=== PATIENT | female | born 1945 | race Caucasian/White ===

== ENCOUNTER 2021-08-27 18:55 | Observation (INO) ==
--- NOTE | 2021-08-27 19:06 | Emergency Department Note ---
Impression & Plan Syncope, Hyperglycemia ED Provider Note NAME: CHILO ROSENBERG AGE: 76 SEX: F : 1945 ARRIVES VIA: Ambulance INFORMANT: Patient, ED PROVIDER(S): Ernst Mclean MD Chief Complaint: Syncope HPI: Patient does present from home due to concern for syncope. The patient does not remember the event. The patient states that she was eating dinner when she got very lightheaded and warm and flushed and then she woke up with her on the phone with 911. Patient states that she had some mild upper abdominal discomfort but does not describe it as a pain. Patient states that she did not receive any medications in route but did receive oxygen which she said slightly improved her symptoms. Patient denies any current chest pain or shortness of breath. The patient does have a remote history of a 40% blockage for which she is on medication but never received any cardiac stenting. Patient states she is compliant with her medications. Patient states that she does not receive vaccinations including Shingrix, pneumococcal or COVID-19. Patient denies upper respiratory symptoms. Patient denies any lower extremity edema, history DVT or PE. No recent surgeries or procedures or recent travel. No know n sick contacts. Patient states that this has not happened before. No reported seizure-like activity. BSG was not obtained by EMS prior to arrival. The patient denies any tongue biting or incontinence. Patient denies any head or neck pain. ROS: See HPI for pertinent positives and negatives. A total of 10 systems were reviewed and otherwise negative. Past medical history: See below Surgical history: See below Social history: See below Physical Exam: GENERAL: NAD, wearing glasses, wearing a mask, non-toxic. Nasal cannula in place but not hooked up to oxygen. EYE EXAM: Normal conjunctiva. PERRL, no anisocoria and EOM's grossly intact w/o pain. NECK: Supple, no nuchal rigidity, no adenopathy, non-tender. No signs of meningismus. LUNGS: Clear to auscultation. Normal chest wall mechanics. HEART: NSR, no MRG. ABDOMEN: Abdomen soft, non-tender, normo-active bowel sounds, no masses, no rebound or guarding. BACK: No CVA TTP. SKIN: No rashes and no bruising. UPPER EXTREMITIES: Upper extremities are grossly normal. LOWER EXTREMITIES: Grossly normal, no edema. Negative Homans' sign bilaterally. NEURO EXAM: A&O x3, cranial nerves II-XII grossly intact, normal speech, moves all 4 extremities on command w/o issue. No sensory deficits. Differential diagnoses: Vasovagal event, dehydration, infection, hypoglycemia, electrolyte abnormalities, cardiac sources, intracerebral event, pulmonary embolism, seizure, toxicologic, neurologic, as well as other pathologies. Course: Patient was seen and evaluated the bedside. Full history physical exam was performed. EKG interpreted by me Normal sinus rhythm, rate of 77, normal intervals, left axis deviation. Imaging Studies: See Below Cardiac monitoring: An order was placed for continuous cardiac monitoring. The monitor shows a rate of 78 with sinus rhythm. MDM: Patient did present concern for syncope. Blood work was obtained. Patient does have elevated blood sugar. EKG is unremarkable. Given the patient's syncope and age with new onset diabetes I did speak with the on-call hospitalist Dr. Morillo and the patient was admitted to the medicine service. Past Med/Surg History Medical History H/O: HTN (hypertension) HLD (hyperlipidemia) Surgical History No pertinent past surgical history Social History Smoking Status: Former smoker Smoking End Date: 1978; Hx Alcohol Use: No Hx Substance Use: No Preferred Language: Luxembourgish Landscape Supervisor Required: No Beliefs That Will Affect Care: None Current Living Situation: Spouse Other Information That Helps Us Care for You: No Feels Safe at Home: Yes Safety Concerns: Feels Safe At This Time Assistive Devices: Glasses Allergies Allergies Allergy/AdvReac Type Severity Reaction Status Date / Time lisinopril Allergy Unknown COUGH Verified 08/27/21 19:32 ofloxacin Allergy Unknown RASH Verified 08/27/21 19:32 Home Meds Home Medications Medication Instructions Recorded Confirmed amlodipine 5 mg tablet (Norvasc) 2.5 mg PO PM 08/27/21 08/27/21 aspirin 81 mg tablet,delayed 81 mg PO 3XWK 08/27/21 08/27/21 release (Aspirin Low Dose) calcium carbonate 500 mg calcium 500 mg PO HS 08/27/21 08/27/21 (1,250 mg) tablet (Calcium 500) cholecalciferol (vitamin D3) 25 25 mcg PO HS 08/27/21 08/27/21 mcg (1,000 unit) capsule (Vitamin D3) diclofenac sodium 1 % topical gel 0 g TOPICAL UD PRN 08/27/21 08/27/21 (Voltaren Arthritis Pain) hydralazine 25 mg tablet 25 mg PO BID 08/27/21 08/27/21 levothyroxine 50 mcg tablet 50 mcg PO QAM 08/27/21 08/27/21 (Synthroid) metoprolol succinate 50 mg 50 mg PO HS 08/27/21 08/27/21 tablet,extended release 24 hr (Toprol XL) multivitamin 1 tab PO QAM 08/27/21 08/27/21 nitroglycerin 0.4 mg sublingual 0.4 mg SUBLINGUAL UD PRN 08/27/21 08/27/21 tablet (Nitrostat) pantoprazole 20 mg tablet,delayed 40 mg PO QAM 08/27/21 08/27/21 release (Protonix) simvastatin 20 mg tablet (Zocor) 20 mg PO HS 08/27/21 08/27/21 valsartan 320 1 tab PO QAM 08/27/21 08/27/21 mg-hydrochlorothiazide 12.5 mg tablet (Diovan HCT) vit C 250 mg-vit E 90 mg-zinc 40 1 tab PO BID 08/27/21 08/27/21 mg-copper 1 [id number] capsule (PreserVision AREDS-2) Results & Data (ED) Vital Signs Vital Signs - 24 hr 08/27/21 19:03 08/27/21 19:30 08/27/21 20:00 Temperature 36.5 C Temperature Source Oral Pulse Rate 76 79 79 Pulse Rate from SpO2 Sensor 79 79 Respiratory Rate 20 20 15 Respiratory Effort / Characteristics Non-Labored Spontaneous Blood Pressure 148/76 H 154/94 H 156/90 H Blood Pressure Mean 100 114 112 Pulse Oximetry 100 99 99 Oxygen Delivery Method Room Air Sepsis Recent Fever Within 48 Hours No Sepsis New/Unexplained Change in Mental Status No Sepsis Action Taken by Nursing No Action Required 08/27/21 20:30 08/27/21 21:30 Temperature Temperature Source Pulse Rate 79 83 Pulse Rate from SpO2 Sensor 78 84 Respiratory Rate 21 23 Respiratory Effort / Characteristics Blood Pressure Blood Pressure Mean Pulse Oximetry 100 99 Oxygen Delivery Method Sepsis Recent Fever Within 48 Hours Sepsis New/Unexplained Change in Mental Status Sepsis Action Taken by Long Term Medications Current Medication List: was personally reviewed by me Laboratory Data Attestation: I reviewed the patient's lab results. Result diagrams: 08/28/21 05:42 08/28/21 05:42 Lab Results 08/27/21 08/27/21 08/27/21 Range/Units 19:10 19:10 19:17 WBC 9.05 (4.8-10.8) K/uL RBC 4.56 (4.2-5.4) M/uL Hgb 14.2 (12.0-16.0) g/dL Hct 41.2 (37-47) % MCV 90.4 (80-100) fL MCH 31.1 (25-34) pg MCHC 34.5 (32-36) g/dL RDW Std Deviation 43.2 (36.4-46.3) fL RDW Coeff of Sandee 13.2 (11.5-14.5) % Plt Count 257 (130-400) K/uL MPV 9.9 (7.4-10.4) fL Immature Gran % (Auto) 0.3 % Neut % (Auto) 76.9 % Lymph % (Auto) 15.4 % Grand % (Auto) 4.9 % Eos % (Auto) 2.2 % Baso % (Auto) 0.3 % Neut # (Auto) 6.96 H (1.4-6.5) K/uL Lymph # (Auto) 1.39 (1.2-3.4) K/uL Grand # (Auto) 0.44 (0.11-0.59) K/uL Eos # (Auto) 0.20 (0-0.5) K/uL Baso # (Auto) 0.03 (0-0.2) K/uL Immature Gran # (Auto) 0.03 H (0.00-0.02) K/uL Sodium 141 (136-145) mmol/L Potassium 3.1 L (3.5-5.1) mmol/L Chloride 105 (98-107) mmol/L Carbon Dioxide 26 (21-32) mmol/L Anion Gap 10.0 (3-11) BUN 22 H (7-18) mg/dl Creatinine 1.46 H (0.6-1.2) mg/dl Est Cr Clr Drug Dosing 38.4 ml/min Est GFR ( Amer) 40.7 ml/min Est GFR (Non-Af Amer) 35.1 ml/min BUN/Creatinine Ratio 14.9 (10-20) Glucose 203 H (70-99) mg/dl POC Glucose 198 H (70-99) mg/dl Calcium 9.7 (8.5-10.1) mg/dl Magnesium 1.8 (1.8-2.4) mg/dl Total Bilirubin 0.7 (0.2-1) mg/dl AST 19 (15-37) U/L ALT 23 (12-78) U/L Alkaline Phosphatase 94 (45-117) U/L Troponin I < 0.015 (0-0.045) ng/ml Total Protein 7.2 (6.4-8.2) gm/dl Albumin 3.5 (3.4-5.0) gm/dl Globulin 3.7 (2.5-4.0) gm/dl Albumin/Globulin Ratio 0.9 (0.9-2) TSH 4.590 H (0.300-4.500) uIu/ml Free T4 1.29 (0.8-1.6) ng/dl Urine Color Urine Appearance (Clear) Urine pH (4.5-7.5) Ur Specific [place] (1.000-1.030) Urine Protein (Negative) Urine Glucose (UA) (Negative) Urine Ketones (Negative) Urine Blood (Negative) Urine Nitrite (Negative) Urine Bilirubin (Negative) Urine Urobilinogen (Negative) Ur Leukocyte Esterase (Negative) COVID-19 Eval Order SARS-CoV-2 (PCR) (Negative) 08/27/21 08/27/21 08/27/21 Range/Units 20:20 20:20 20:25 WBC (4.8-10.8) K/uL RBC (4.2-5.4) M/uL Hgb (12.0-16.0) g/dL Hct (37-47) % MCV (80-100) fL MCH (25-34) pg MCHC (32-36) g/dL RDW Std Deviation (36.4-46.3) fL RDW Coeff of Sandee (11.5-14.5) % Plt Count (130-400) K/uL MPV (7.4-10.4) fL Immature Gran % (Auto) % Neut % (Auto) % Lymph % (Auto) % Grand % (Auto) % Eos % (Auto) % Baso % (Auto) % Neut # (Auto) (1.4-6.5) K/uL Lymph # (Auto) (1.2-3.4) K/uL Grand # (Auto) (0.11-0.59) K/uL Eos # (Auto) (0-0.5) K/uL Baso # (Auto) (0-0.2) K/uL Immature Gran # (Auto) (0.00-0.02) K/uL Sodium (136-145) mmol/L Potassium (3.5-5.1) mmol/L Chloride (98-107) mmol/L Carbon Dioxide (21-32) mmol/L Anion Gap (3-11) BUN (7-18) mg/dl Creatinine (0.6-1.2) mg/dl Est Cr Clr Drug Dosing ml/min Est GFR ( Amer) ml/min Est GFR (Non-Af Amer) ml/min BUN/Creatinine Ratio (10-20) Glucose (70-99) mg/dl POC Glucose (70-99) mg/dl Calcium (8.5-10.1) mg/dl Magnesium (1.8-2.4) mg/dl Total Bilirubin (0.2-1) mg/dl AST (15-37) U/L ALT (12-78) U/L Alkaline Phosphatase (45-117) U/L Troponin I (0-0.045) ng/ml Total Protein (6.4-8.2) gm/dl Albumin (3.4-5.0) gm/dl Globulin (2.5-4.0) gm/dl Albumin/Globulin Ratio (0.9-2) TSH (0.300-4.500) uIu/ml Free T4 (0.8-1.6) ng/dl Urine Color Yellow Urine Appearance Clear (Clear) Urine pH 7.0 (4.5-7.5) Ur Specific [place] 1.013 (1.000-1.030) Urine Protein Negative (Negative) Urine Glucose (UA) Negative (Negative) Urine Ketones Negative (Negative) Urine Blood Negative (Negative) Urine Nitrite Negative (Negative) Urine Bilirubin Negative (Negative) Urine Urobilinogen Negative (Negative) Ur Leukocyte Esterase Negative (Negative) COVID-19 Eval Order Covid19 at [facility] SARS-CoV-2 (PCR) NEGATIVE (Negative) Administered Medications Aspirin (Aspirin 81 Mg Ectab) 81 mg PO [id number] [facility] Stop: 09/27/21 08:59 Last Admin: 08/28/21 08:38 Dose: 81 mg Documented by: [id number] Hydralazine HCl (Hydralazine Hcl 25 Mg Tab) 25 mg PO BID [facility] Stop: 09/27/21 08:59 Last Admin: 08/28/21 08:38 Dose: 25 mg Documented by: [id number] Sodium Chloride (Nss 1000ml) 1,000 mls @ 80 mls/hr IV .[id number] [facility] Stop: 09/27/21 01:48 Last Admin: 08/28/21 01:58 Dose: 80 mls/hr Documented by: [id number] Levothyroxine Sodium (Levothyroxine Sodium 50 Mcg Tablet) 50 mcg PO DAILYBB [facility] Stop: 09/27/21 06:29 Last Admin: 08/28/21 06:34 Dose: 50 mcg Documented by: [id number] Multivitamins/Minerals (Cerovite Adv Formula Tab) [facility] Stop: 09/27/21 08:59 Last Admin: 08/28/21 08:39 Dose: 1 tab Documented by: [id number] Pantoprazole Sodium (Pantoprazole 40 Mg Tab) [facility] [place] Stop: 09/27/21 08:59 Last Admin: 08/28/21 08:38 Dose: 40 mg Documented by: [id number] Valsartan (Valsartan 80 Mg Tab) 320 [facility] [place] Stop: 09/27/21 08:59 Last Admin: 08/28/21 08:38 Dose: 320 mg Documented by: [id number] Discontinued Medications Hydrochlorothiazide (Hydrochlorothiazide 25 Mg Tab) 12.5 [facility] Stop: 09/27/21 08:59 Last Admin: 08/28/21 08:39 Dose: 12.5 mg Documented by: [id number] Sodium Chloride (Nss) 500 mls @ 999 mls/hr IV .Q31M [facility] Stop: 08/27/21 19:45 Last Infusion: 08/27/21 20:30 Dose: 0 mls/hr Documented by: [id number] Admin: 08/27/21 19:35 Dose: 999 mls/hr Documented by: [id number] Sodium Chloride (Nss 1000ml) 500 mls @ 999 mls/hr IV .Q31M ONE Stop: 08/27/21 21:44 Last Infusion: 08/27/21 22:48 Dose: 0 mls/hr Documented by: [id number] Admin: 08/27/21 22:14 Dose: 999 mls/hr Documented by: [id number] Potassium Chloride (Potassium Chloride Crtab 20 Meq Tabcr) 40 meq PO NOW STA Stop: 08/27/21 21:15 Last Admin: 08/27/21 22:12 Dose: 40 meq Documented by: [id number] Imaging Data Radiologist's Impression: Chest X-Ray 08/27/21 19:21 XR chest 1V portable HISTORY: 76 years-old Female syncope acute syncope COMPARISON: None TECHNIQUE: Portable AP view the chest FINDINGS: Cardiomediastinal and hilar silhouettes are within normal limits. Calcified plaque of the thoracic aorta. No pneumothorax, pleural effusion, airspace consolidation or overt pulmonary edema. Degenerative changes of the shoulders and spine. IMPRESSION: No acute process. ACT 112: Negative or not required by law. The above report was generated using voice recognition software. It may contain grammatical, syntax or spelling errors. Electronically signed by: Bob Weathers M.D. 08/27/2021 8:06 PM Discharge Plan Visit Data Chief Complaint: Syncope Stated Complaint: SOB, SYNCOPE Discharge Problem: Syncope, Hyperglycemia Patient Disposition: Admitted As Inpatient Discharge Instructions Interventions: ED Discharge Assessment Last Done: 08/28/21 01:40
[2021-08-27] MEDS ORDERED: SODIUM CHLORIDE 0.9% 500 ML IV SCH (19:15)
[2021-08-27 19:24] LABS: Basophils # (auto) 0.03 K/uL (0-0.2); Basophils % (auto) 0.3 %; Eosinophils % (auto) 2.2 %; Hematocrit (blood only) 41.2 % (37-47); Hemoglobin 14.2 g/dL (12.0-16.0); Immature Granulocytes # (auto) 0.03 K/uL (0.00-0.02); Immature Granulocytes % (auto) 0.3 %; Lymphocytes # (auto) 1.39 K/uL (1.2-3.4); Lymphocytes % (auto) 15.4 %; Mean Corpuscular Hemoglobin 31.1 pg (25-34); Mean Corpuscular Hgb Conc 34.5 g/dL (32-36); Mean Corpuscular Volume 90.4 fL (80-100); Mean Platelet Volume 9.9 fL (7.4-10.4); Monocytes # (auto) 0.44 K/uL (0.11-0.59); Monocytes % (auto) 4.9 %; Neutrophils # (auto) 6.96 K/uL (1.4-6.5); Neutrophils % (auto) 76.9 %; Platelet Count 257 K/uL (130-400); RDW Coefficient of Variation 13.2 % (11.5-14.5); RDW Standard Deviation 43.2 fL (36.4-46.3); Red Blood Count 4.56 M/uL (4.2-5.4); White Blood Count 9.05 K/uL (4.8-10.8)
[2021-08-27 19:41] LABS: Alanine Aminotransferase 23 U/L (12-78); Albumin Level 3.5 gm/dl (3.4-5.0); Aspartate Aminotransferase 19 U/L (15-37); BUN Creatinine Ratio 14.9 (10-20); Blood Urea Nitrogen 22 mg/dl (7-18); Calcium 9.7 mg/dl (8.5-10.1); Carbon Dioxide 26 mmol/L (21-32); Chloride 105 mmol/L (98-107); Creatinine Clr Calc Pharmacy 38.4 ml/min; Est GFR (African American) 40.7 ml/min; Est GFR (Non-African American) 35.1 ml/min; Glucose 203 mg/dl (70-99); Magnesium 1.8 mg/dl (1.8-2.4); Potassium 3.1 mmol/L (3.5-5.1); Sodium 141 mmol/L (136-145)
[2021-08-27 19:51] LABS: Albumin Globulin Ratio 0.9 (0.9-2); Alkaline Phosphatase 94 U/L (45-117); Bilirubin,Total 0.7 mg/dl (0.2-1); Globulin 3.7 gm/dl (2.5-4.0); Total Protein 7.2 gm/dl (6.4-8.2); Troponin I < 0.015 ng/ml (0-0.045)
[2021-08-27 20:04] LABS: T4 Free Thyroxine 1.29 ng/dl (0.8-1.6)
--- NOTE | 2021-08-27 20:07 | XRay Report ---
XR chest 1V portable HISTORY: 76 years-old Female syncope acute syncope COMPARISON: None TECHNIQUE: Portable AP view the chest FINDINGS: Cardiomediastinal and hilar silhouettes are within normal limits. Calcified plaque of the thoracic ao rta. No pneumothorax, pleural effusion, airspace consolidation or overt pulmonary edema. Degenerative changes of the shoulders and spine. IMPRESSION: No acute process. ACT 112: Negative or not required by law. The above report was generated using voice recognition software. It may contain grammatical, syntax o r spelling errors. Electronically signed by: Bob Weathers M.D. 08/27/2021 8:06 PM
[2021-08-27 20:51] LABS: Appearance Urine Clear (Clear); Bilirubin Urine Negative (Negative); Blood Urine Negative (Negative); Color Urine Yellow; Glucose Urine UA Negative (Negative); Ketones Urine Negative (Negative); Leukocyte Esterase Urine Negative (Negative); Nitrite Urine Negative (Negative); Protein Urine Negative (Negative); Specific Gravity Urine 1.013 (1.000-1.030); Urobilinogen Urine Negative (Negative)
[2021-08-27] MEDS ORDERED: SODIUM CHLORIDE 0.9% 1000ML 500 ML IV ONE (21:14)
[2021-08-27] MEDS ORDERED: POTASSIUM CHLORIDE CRTAB 20 MEQ TABCR PO STA (21:14)
--- NOTE | 2021-08-27 23:12 | History and Physical Report ---
DATE OF NOTE: 08/27/2021. CHIEF COMPLAINT: Syncope. HISTORY OF PRESENT ILLNESS: A 76-year-old female with past medical history significant for hypertension, hypothyroidism, history of GERD, hyperlipidemia, history of nonobstructive CAD, as per the patient she has been diagnosed with 40% CAD lesion 17yrs ago and she is on medical management, follows with Cardiology presents with syncope. The patient was making her dinner, and she felt very hot. She checked her temperature, it was normal, and she then started eating dinner but continued to feel very hot and she later laid her head on the table. Her thought that she passed out with her eyes rolling. Next thing she remembers is her calling the 911. She thinks she might have passed out for 2 minutes. No biting of the tongue, no incontinence during episode. She says she is doing okay now.. Denies any chest pain, no shortness of breath, no cough, no fevers, no headache, no blurred visions, no earache, no runny nose, no sore throat. Appetite is okay. No difficulty swallowing. Currently, no nausea, no abdominal pain, normal bowel and bladder movements. Otherwise, ambulates fine. The patient is not vaccinated for COVID. The patient says she usually does not take any vaccinations. ALLERGIES: LISINOPRIL, LEVOFLOXACIN. PAST MEDICAL HISTORY: As mentioned above. PAST SURGICAL HISTORY: Hysterectomy, cholecystectomy, tonsillectomy. MEDICATIONS: The patient is on amlodipine 2.5 mg p.o. a.m., aspirin 81 mg p.o. 3 times a week, calcium carbonate 500 mg p.o. at bedtime, vitamin D 25 mcg p.o. at bedtime, diclofenac sodium p.r.n., hydralazine 25 mg p.o. b.i.d., Synthroid 250 mcg p.o. a.m., metoprolol succinate 50 mg p.o. at bedtime, multivitamin one tablet p.o., nitroglycerin 0.4 mg sublingual p.r.n., Protonix 40 mg p.o. a.m., Zocor 20 mg p.o. at bedtime, Diovan 1 tablet p.o. a.m., PreserVision AREDS 1 tablet p.o. b.i.d. FAMILY HISTORY: Significant for father and mother had heart disease. SOCIAL HISTORY: Quit smoking when she was 34 years old, drinks mixed drink 1 glass every night. Lives with her . REVIEW OF SYSTEMS: As per HPI. Rest of review of systems are negative. PHYSICAL EXAMINATION: GENERAL: The patient is of moderate build, not in acute distress. VITAL SIGNS: Temperature 36.5, pulse 82, respiratory rate 23, blood pressure 196/99, oxygen 97% on room air. HEENT: Pupils equal, round and reactive to light. Oral mucosa moist. NECK: No JVD, no neck masses. CARDIOVASCULAR: S1 and S2 heard. Regular rate and rhythm. No murmur, no gallop. RESPIRATORY SYSTEM: Normal AP diameter. No accessory muscle use. No wheezing, no crackles. ABDOMEN: Soft, bowel sounds present, nontender, no distention. CENTRAL NERVOUS SYSTEM: Cranial nerves II-XII grossly intact, nonfocal. EXTREMITIES: No edema, no erythema. LABORATORY DATA: WBC 9.05, hemoglobin 14.2, hematocrit 41.2, platelets 257. Sodium 141, potassium 3.1, chloride 105, bicarbonate 26, BUN 22, creatinine 1.4, serum glucose 203, calcium 9.7, magnesium 1.8, total bilirubin 0.7, AST 19, ALT 23, alkaline phosphatase 94. Troponin I less than 0.015. TSH 4.5, free T4 1.2960. Urinalysis negative. SARS-CoV-2 PCR negative. IMAGING DATA: Chest x-ray, no acute process. EKG: Normal sinus rhythm rate at 77, nonspecific ST abnormalities. ASSESSMENT AND PLAN: This 76-year-old female presents with syncope. 1. Syncope, etiology unclear, could be orthostatic, The patient is currently asymptomatic. Labs are okay. We will monitor in tele floor. We will get echocardiogram, serial cardiac enzymes and consult Cardiology in the a.m. 2. Hyperglycemia. The patient is not a known diabetic. We will follow HbA1c levels in a.m. Follow the repeat labs. 3. Acute kidney injury, creatinine 1.4. We do not have the baseline labs. Getting fluids. Follow the repeat labs in a.m. 4. Hypokalemia: We will replace. 5. Hypertension: Continue home medication of metoprolol succinate, hydralazine.amlodipine and diovan.BP Running high. we will place on IV hydralazine prn. Monitor the blood pressure. 6. Hypothyroidism: Continue Synthroid. 7. Gastroesophageal reflux disease: Continue Protonix. 8. Hyperlipidemia: Continue statin. 9. Hx of non obstructive CAD. on aspirin, statin and b ori. 10. Deep venous thrombosis prophylaxis: SCDs. DISPOSITION: Closely monitor in the med tele. PT/OT prior to discharge. Social service to help with discharge planning. Job ID: [id number] NAS
[2021-08-28] MEDS ORDERED: hydrALAZINE HCL 20 MG/ML VIAL IV PRN (01:49)
[2021-08-28] MEDS ORDERED: DICLOFENAC SOD 1% GEL 100 GM TUBE EXT PRN (01:49)
[2021-08-28] MEDS ORDERED: SODIUM CHLORIDE 0.9% 1000ML 1,000 ML IV SCH (01:49)
[2021-08-28] MEDS ORDERED: NITROGLYCERIN SL 0.4 MG/TAB TAB SL PRN ×2 (01:49)
[2021-08-28] MEDS ORDERED: ACETAMINOPHEN 325 MG TAB PO PRN (01:49)
[2021-08-28 05:55] LABS: Basophils # (auto) 0.02 K/uL (0-0.2); Basophils % (auto) 0.3 %; Eosinophils % (auto) 2.7 %; Hematocrit (blood only) 36.7 % (37-47); Hemoglobin 12.7 g/dL (12.0-16.0); Immature Granulocytes # (auto) 0.01 K/uL (0.00-0.02); Immature Granulocytes % (auto) 0.1 %; Lymphocytes # (auto) 1.62 K/uL (1.2-3.4); Lymphocytes % (auto) 21.8 %; Mean Corpuscular Hemoglobin 31.4 pg (25-34); Mean Corpuscular Hgb Conc 34.6 g/dL (32-36); Mean Corpuscular Volume 90.6 fL (80-100); Mean Platelet Volume 9.7 fL (7.4-10.4); Monocytes # (auto) 0.63 K/uL (0.11-0.59); Monocytes % (auto) 8.5 %; Neutrophils # (auto) 4.95 K/uL (1.4-6.5); Neutrophils % (auto) 66.6 %; Platelet Count 231 K/uL (130-400); RDW Coefficient of Variation 13.3 % (11.5-14.5); Red Blood Count 4.05 M/uL (4.2-5.4); White Blood Count 7.43 K/uL (4.8-10.8)
[2021-08-28 06:14] LABS: BUN Creatinine Ratio 17.5 (10-20); Blood Urea Nitrogen 17 mg/dl (7-18); Calcium 8.6 mg/dl (8.5-10.1); Carbon Dioxide 26 mmol/L (21-32); Chloride 111 mmol/L (98-107); Est GFR (African American) 68.4 ml/min; Glucose 103 mg/dl (70-99); Magnesium 1.8 mg/dl (1.8-2.4); Potassium 3.5 mmol/L (3.5-5.1); Sodium 142 mmol/L (136-145)
[2021-08-28 06:25] LABS: Troponin I < 0.015 ng/ml (0-0.045)
[2021-08-28] MEDS ORDERED: LEVOTHYROXINE SODIUM 50 MCG TABLET PO SCH (06:30)
--- NOTE | 2021-08-28 07:51 | Cardiology Consultation ---
Date of Consultation August 28, 2021 History of Present Illness Reason for Consultation: Syncope Attending Physician: Fely Trevino MD History of Present Illness She notes yesterday they went out for breakfast. She really did not eat lunch. With this she probably did not drink as much as usual. She was standing in the kitchen she had left-sided back discomfort below her left scapula on the left side. Once she had this discomfort she started to become warm. She took her temperature. She then sent down to eat dinner and started to feel worse and then subsequently put her head on the table. Her describes that her eyes rolled in the back of her head. They called 911. She had no loss of bowel or bladder function. Prior to the episode she denied any palpitations or fluttering or feeling her heart racing. She denies any chest pain or chest pressure. She denies any shortness of breath either. Yesterday she was up and on the steps without any chest pain or shortness of breath. This morning she feels well. She denies any lower extremity edema. Her appetite otherwise has been stable. And she is otherwise felt quite well the rest of a complete her systems otherwise negative Allergies Allergy/AdvReac Type Severity Reaction Status Date / Time lisinopril Allergy Unknown COUGH Verified 08/27/21 19:32 ofloxacin Allergy Unknown RASH Verified 08/27/21 19:32 Home Medications Medication Instructions Recorded Confirmed Type amlodipine 5 mg tablet (Norvasc) 2.5 mg PO PM 08/27/21 08/27/21 History aspirin 81 mg tablet,delayed 81 mg PO [id number] 08/27/21 08/27/21 History release (Aspirin Low Dose) calcium carbonate 500 mg calcium 500 mg PO HS 08/27/21 08/27/21 History (1,250 mg) tablet (Calcium 500) cholecalciferol (vitamin D3) 25 25 mcg PO HS 08/27/21 08/27/21 History mcg (1,000 unit) capsule (Vitamin D3) diclofenac sodium 1 % topical gel 0 g TOPICAL UD PRN 08/27/21 08/27/21 History (Voltaren Arthritis Pain) hydralazine 25 mg tablet 25 mg PO BID 08/27/21 08/27/21 History levothyroxine 50 mcg tablet 50 mcg PO QAM 08/27/21 08/27/21 History (Synthroid) metoprolol succinate 50 mg 50 mg PO HS 08/27/21 08/27/21 History tablet,extended release 24 hr (Toprol XL) multivitamin 1 tab PO QAM 08/27/21 08/27/21 History nitroglycerin 0.4 mg sublingual 0.4 mg SUBLINGUAL UD PRN 08/27/21 08/27/21 History tablet (Nitrostat) pantoprazole 20 mg tablet,delayed 40 mg PO QAM 08/27/21 08/27/21 History release (Protonix) simvastatin 20 mg tablet (Zocor) 20 mg PO HS 08/27/21 08/27/21 History valsartan 320 1 tab PO QAM 08/27/21 08/27/21 History mg-hydrochlorothiazide 12.5 mg tablet (Diovan HCT) vit C 250 mg-vit E 90 mg-zinc 40 1 tab PO BID 08/27/21 08/27/21 History mg-copper 1 [id number] capsule (PreserVision AREDS-2) Patient History Social History Smoking Status: Former smoker Smoking End Date: 1978; Hx Alcohol Use: No Hx Substance Use: No Preferred Language: Stateless Hydrographic Engineer Required: No Beliefs That Will Affect Care: None Current Living Situation: Spouse Other Information That Helps Us Care for You: No Feels Safe at Home: Yes Safety Concerns: Feels Safe At This Time Assistive Devices: Glasses Results & Data ([facility]) Vital Signs (Past 12 Hours) Vital Signs Pulse Pulse Resp BP BP Pulse Ox 08/28/21 02:00 79 20 147/79 H 96 08/28/21 01:30 76 22 137/78 08/28/21 01:00 74 20 129/83 08/28/21 00:30 77 20 160/91 H 93 08/27/21 23:30 78 21 148/79 H 95 08/27/21 22:30 79 17 169/108 H 08/27/21 22:15 82 196/99 H 97 08/27/21 21:30 83 23 99 08/27/21 20:30 79 21 100 08/27/21 20:00 79 15 156/90 H 99 She is awake alert and oriented x3 she is in no acute distress HEENT: 2+ carotid upstrokes no evidence of carotid bruits Lungs: Clear to auscultation bilaterally no rales rhonchi or wheezing Heart: Regular rate and rhythm with a soft systolic ejection murmur Extremities no clubbing cyanosis or edema Psychiatric affect appeared appropriate Past medical history: 1 history of coronary disease with a 40% mid LAD lesion by cardiac catheterization in 2003 2. Preserved biventricular size and function with an ejection fraction range of 65 to 70% May 2019 3. Fatigue associated with higher dose of beta-blockers and lower extremity edema with higher doses of amlodipine 4. Hypertension 5. Hyperlipidemia EKG normal sinus rhythm with left axis deviation Second EKG at 1954 on August 27 sinus tachycardia at a rate of 119 sinus tachycardia right bundle branch block [place] Troponins are negative; labs suggest she is prerenal IMPRESSIONS: 1. Vasovagal syncope 2. Rate related right bundle branch block 3. Prerenal azotemia 4. Known history of normal biventricular size and function This sounds like a vasovagal episode. She had back discomfort that does not sound cardiac in etiology she then vasodilated and became diaphoretic and warm and ultimately had a syncopal episode. in addition she appears prerenal on her laboratory studies which likely contributed to her event. Her carotid upstrokes are brisk. there is nothing to suggest an acute coronary syndrome as her tr oponins are negative. From my standpoint she can be discharged home. I think this is just common vasovagal episode complicated by dehydration. She feels well this morning. She can continue her regular follow-up with myself as well as her primary care provider she notes her blood pressures at home have been slightly more elevated and we may need to adjust her medical regimen but I would not do it in the face of this ER visit. She does not need an echocardiogram from my standpoint.
[2021-08-28 08:14] LABS: Estimated Average Glucose 114 mg/dl; Hemoglobin A1C 5.6 % (4.5-5.6)
[2021-08-28] MEDS ORDERED: hydroCHLOROthiazide 25 MG TAB PO SCH (09:00)
[2021-08-28] MEDS ORDERED: hydrALAZINE HCL 25 MG TAB PO SCH (09:00)
[2021-08-28] MEDS ORDERED: MULTIVITAMIN TAB PO SCH (09:00)
[2021-08-28] MEDS ORDERED: VALSARTAN 80 MG TAB PO SCH (09:00)
[2021-08-28] MEDS ORDERED: ASPIRIN 81 MG ECTAB PO SCH (09:00)
[2021-08-28] MEDS ORDERED: CEROVITE ADV FORMULA TAB PO SCH (09:00)
[2021-08-28] MEDS ORDERED: PANTOprazole 40 MG TAB PO SCH (09:00)
--- NOTE | 2021-08-28 12:22 | Electrocardiogram Report ---
Test Reason : Blood Pressure : / mmHG Vent. Rate : 077 BPM Atrial Rate : 077 BPM P-R Int : 172 ms QRS Dur : 080 ms QT Int : 404 ms P-R-T Axes : 049 -41 028 degrees QTc Int : 457 ms Normal sinus rhythm Left axis deviation Minimal voltage criteria for LVH, may be normal variant Nonspecific ST abnormality Abnormal ECG No previous ECGs available Confirmed by Selvin Alejandro ([id number]) on 08/28/2021 12:22:33 PM Referred By: REFERRED SELF Confirmed By:Selvin Alejandro
--- NOTE | 2021-08-28 12:23 | Electrocardiogram Report ---
Test Reason : Blood Pressure : / mmHG Vent. Rate : 119 BPM Atrial Rate : 119 BPM P-R Int : 140 ms QRS Dur : 132 ms QT Int : 330 ms P-R-T Axes : 049 249 035 degrees QTc Int : 464 ms Sinus tachycardia Right bundle branch block Abnormal ECG When compared with ECG of 27-AUG-2021 19:18, (unconfirmed) Vent. rate has increased BY 42 BPM Right bundle branch block is now Present Confirmed by Selvin Alejandro ([id number]) on 08/28/2021 12:23:24 PM Referred By: REFERRED SELF Confirmed By:Selvin Alejandro
--- NOTE | 2021-08-28 12:37 | Electrocardiogram Report ---
Test Reason : Blood Pressure : / mmHG Vent. Rate : 082 BPM Atrial Rate : 082 BPM P-R Int : 168 ms QRS Dur : 080 ms QT Int : 396 ms P-R-T Axes : 042 -39 011 degrees QTc Int : 462 ms Normal sinus rhythm Left axis deviation Abnormal ECG When compared with ECG of 27-AUG-2021 19:54, (unconfirmed) Right bundle branch block is no longer Present Confirmed by Selvin Alejandro ([id number]) on 08/28/2021 12:37:11 PM Referred By: REFERRED SELF Confirmed By:Selvin Alejandro
--- NOTE | 2021-08-28 14:23 | Hospitalist Progress Note ---
Date of Service August 28, 2021 Assessment & Plan (1) Syncope: Plan: ASSESSMENT AND PLAN: This 76-year-old female presents with syncope. 1. Syncope, secondary to Vasovagal etiology, Dehydration - EKG no signs of acute ischemia Troponin negative evaluated by Supervisor [employer] Dr. Benjamin- feels syncope is secondary to Vasovagal etiology, Dehydration - patient presented with elevated crea 1.4 reports not eating lunch and not drinking water yesterday BP stable, crea improved after IV NSS - ff up with PCP in 1 week 2. Hyperglycemia. The patient is not a known diabetic. - BSG 203 - likely form stress response - a1c 5.6 3. Acute kidney injury, creatinine 1.4. - secondary to pre renal, poor oral intake - given IV NSS - crea improved to 0.95 4. Hypokalemia: replaced 5. Hypertension: Continue home medication of metoprolol succinate, hydralazine .amlodipine and diovan. 6. Hypothyroidism: Continue Synthroid. 7. Gastroesophageal reflux disease: Continue Protonix. 8. Hyperlipidemia: Continue statin. 9. Hx of non obstructive CAD. on aspirin, statin and b ori. 10. Deep venous thrombosis prophylaxis: SCDs. DISPOSITION: d/c home ff up with PCP in 1 week plan of care discussed with patient in detail and at length all questions answered she is understanding, agreeable, comfortable with the plan of care Admission and Anticipated Discharge Date Admission Date: August 27, 2021 Subjective ff up for syncope seen resting in bed, sitting up, comfortable in good spirits states she feels much better able to ambulate in the room to the bathroom with no problems states she feels fine overall no chest pain, dyspnea, palpitations, dizziness no headache, abdominal pain, nausea/vomiting, fever/chills, pain no other symptoms states she is ready and would like to be discharged home Review of Systems Review of Systems: all noted and negative except for above Physical Exam Physical Exam: General- oriented x 3, not in distress, speaks in sentences with no effort or accessory muscle use Head- atraumatic Eyes- PERRL, EOMI, anicteric ENT- oropharynx clear Neck- supple, no JVD, no adenopathy, no thyromegaly; carotids +2/2, no bruits appreciated Lungs- clear to auscultation bilaterally, no rales/wheezes Heart- normal rate, regular rhythm; no murmur, no gallop, no rub appreciated Abdomen- normal bowel sounds, nondistended, soft, nontender, no masses or hepatosplenomegaly Extremities- no pretibial edema, no calf tenderness; peripheral pulses intact Neuro- alert, oriented x 3; CN 2-12 grossly intact; motor 5/5 bilaterally;sensation 100% on all extremities; no other gross focal neurologic deficits Skin- warm & dry Results & Data Results & Data ([place]) Vital Signs (Past 12 Hours) all noted and reviewed including below
--- NOTE | 2021-08-28 14:30 | Discharge Summary ---
Date of Service August 28, 2021 Admission HPI Per Admitting Provider CHIEF COMPLAINT: Syncope. HISTORY OF PRESENT ILLNESS: A 76-year-old female with past medical history significant for hypertension, hypothyroidism, history of GERD, hyperlipidemia, history of nonobstructive CAD, as per the patient she has been diagnosed with 40% CAD lesion 17yrs ago and she is on medical management, follows with Cardiology presents with syncope. The patient was making her dinner, and she felt very hot. She checked her temperature, it was normal, and she then started eating dinner but continued to feel very hot and she later laid her head on the table. Her thought that she passed out with her eyes rolling. Next thing she remembers is her calling the 911. She thinks she might have passed out for 2 minutes. No biting of the tongue, no incontinence during episode. She says she is doing okay now.. Denies any chest pain, no shortness of breath, no cough, no fevers, no headache, no blurred visions, no earache, no runny nose, no sore throat. Appetite is okay. No difficulty swallowing. Currently, no nausea, no abdominal pain, normal bowel and bladder movements. Otherwise, ambulates fine. The patient is not vaccinated for COVID. The patient says she usually does not take any vaccinations. Admission Exam (Per Admitting) Constitutional GENERAL: The patient is of moderate build, not in acute distress. VITAL SIGNS: Temperature 36.5, pulse 82, respiratory rate 23, blood pressure 196/99, oxygen 97% on room air. HEENT: Pupils equal, round and reactive to light. Oral mucosa moist. NECK: No JVD, no neck masses. CARDIOVASCULAR: S1 and S2 heard. Regular rate and rhythm. No murmur, no gallop. RESPIRATORY SYSTEM: Normal AP diameter. No accessory muscle use. No wheezing, no crackles. ABDOMEN: Soft, bowel sounds present, nontender, no distention. CENTRAL NERVOUS SYSTEM: Cranial nerves II-XII grossly intact, nonfocal. EXTREMITIES: No edema, no erythema. Discharge Data Consultations 08/27/21 21:14 ED Decision to Admit Stat 08/28/21 08:00 Consult Cardiology Routine Hospital Course (1) Syncope: ASSESSMENT AND PLAN: This 76-year-old female presents with syncope. 1. Syncope, secondary to Vasovagal etiology, Dehydration - EKG no signs of acute ischemia Troponin negative evaluated by Bankruptcy Manager Dr. Benjamni- feels syncope is secondary to Vasovagal etiology, Dehydration - patient presented with elevated crea 1.4 reports not eating lunch and not drinking water yesterday BP stable, crea improved after IV NSS - ff up with PCP in 1 week 2. Hyperglycemia. The patient is not a known diabetic. - BSG 203 - likely form stress response - a1c 5.6 3. Acute kidney injury, creatinine 1.4. - secondary to pre renal, poor oral intake - given IV NSS - crea improved to 0.95 4. Hypokalemia: replaced 5. Hypertension: Continue home medication of metoprolol succinate, hydralazine.amlodipine and diovan. 6. Hypothyroidism: Continue Synthroid. 7. Gastroesophageal reflux disease: Continue Protonix. 8. Hyperlipidemia: Continue statin. 9. Hx of non obstructive CAD. on aspirin, statin and b ori. 10. Deep venous thrombosis prophylaxis: SCDs. DISPOSITION: d/c home ff up with PCP in 1 week plan of care discussed with patient in detail and at length all questions answered she is understanding, agreeable, comfortable with the plan of care
[2021-08-28] MEDS ORDERED: METOPROLOL SUCC 50MG EXT REL TAB PO SCH (21:00)
[2021-08-28] MEDS ORDERED: CHOLECALCIFEROL 1,000 UNITS 25 MCG TAB PO SCH (21:00)
[2021-08-28] MEDS ORDERED: SIMVASTATIN 20 MG TAB PO SCH (21:00)
[2021-08-28] MEDS ORDERED: CALCIUM CARBONATE 1250MG TAB PO SCH (21:00)
[2021-08-28] MEDS ORDERED: amLODIPine BESYLATE 5 MG TAB PO SCH (21:00)
== END 2021-08-28 16:08 | disposition home or self-care (01) ==
LOC: EDINP 18:55 → ED 18:55 → SUATTDRO 22:08 → EDINP 08-28 01:40

== ENCOUNTER 2021-10-11 21:47 | Observation (INO) ==
--- NOTE | 2021-10-11 22:17 | XRay Report ---
SINGLE VIEW CHEST CLINICAL HISTORY: Dyspnea. Covid. FINDINGS: An AP, portable, upright chest radiograph is compared to study dated 08/27/2021. The heart is mildly enlarged noting atherosclerotic calcification of the thoracic aorta. The pulmonary vasculat ure is noncongested. Multifocal and predominantly subpleural consolidation is seen throughout both cassi ng. No large pleural effusion or pneumothorax is seen. The skeletal structures are osteopenic. The [place] thorax is grossly intact. IMPRESSION: Multifocal airspace consolidation is consistent with the reported history of a viral pneu monia. Radiographic follow-up to resolution is recommended. ACT 112: Negative or not required by law. Electronically signed by: Kelechi Quintero M.D. 10/11/2021 10:15 PM
[2021-10-11] MEDS ORDERED: ACETAMINOPHEN 500 MG TAB PO STA (22:51)
--- NOTE | 2021-10-11 22:51 | Emergency Department Note ---
Impression & Plan 2019 novel coronavirus-infected pneumonia (NCIP), Hypokalemia, Cough, Acute UTI, Fatigue ED Provider Note Provider: Hossein Acosta MD DATE OF SERVICE: 10/11/2021 CHIEF COMPLAINT: Shortness of breath, cough, Covid HISTORY OF PRESENT ILLNESS: Patient is a 76-year-old female distant history of former smoking nonvaccinated for Covid presenting here reporting for 2 days of cough and bronchitis symptoms. Has been contact the primary doctor and taken 2 courses of dexamethasone in the outpatient setting. Reports worsening cough and shortness of breath. Denies significant abdominal pain reports some diarrhea that resolved. Patient does complain of some mild headache. Has been using Tylenol but not today. No syncope reported recently. REVIEW OF SYSTEMS: A total of 10 review of systems was obtained and negative except as stated above in the HPI. PAST MEDICAL HISTORY: As noted above MEDICATIONS: Reviewed home medications SOCIAL HISTORY: Former smoker, lives at home with PHYSICAL EXAM: GENERAL: alert and oriented in no acute distress on stretcher fatigued in appearance occasionally coughing Head: normocephalic and atraumatic EYES: No injection, discharge or icterus. NECK: Trachea midline. ENT: Mucous membranes pink and moist. LUNGS: Airway patent. No retractions not significantly tachypneic. HEART: Regular rate and rhythm. ABDOMEN: Soft and non-tender, without guarding or rebound. SKIN: Acyanotic, warm, dry, without rashes EXTREMITIES: Without swelling, tenderness or deformity NEUROLOGICAL: No focal deficits. No aphasia. No facial droop or slurred speech. EK bpm normal sinus rhythm. No PVC or PAC. No acute ST segment elevation or depression with a left axis. QTC 435. CONTINUOUS CARDIAC MONITORING: was ordered and showed a heart rate of 70s to 90s bpm in normal sinus rhythm Patient's laboratory studies and imaging reviewed. Differential includes Reactive airway disease, pneumonia, pneumothorax, COPD, CHF, infections, cardiac ischemia, pulmonary embolism, musculoskeletal, gastrointestinal, as well as other pathologies. IMPRESSION/MEDICAL DECISION MAKING: Patient with positive home test for Covid. Completed 2 dexamethasone packs at home. Worsening cough and shortness of breath. Patient in the low 90s on room air. On low-dose aspirin but no other blood thinners. Denies significant chest discomfort at this time. Borderline fever. Complains of some headache and given some Tylenol no focal deficits and doubt acute intracranial bleed or stroke at this point. Does not appear meningitic. No significant leukocytosis or anemia. Mild hypokalemia. Slight anion gap. Renal function appears stable. Slight AST elevation and CRP elevation seems consistent with Covid. Urinalysis questions infection although she denies significant symptoms. Will cover ceftriaxone pending urine culture. D-dimer positive given her prolonged course of cough after the chest x-ray read per radiology will complete a CT of the chest to exclude PE or occult pneumonia beyond Covid. Preliminary report as below. Discussed with the patient. IV potassium supplementation ordered. Given her significant cough and weakness we will asked the hospitalist to evaluate. DIAGNOSIS: COVID-19 pneumonia, cough, hypokalemia, UTI DISPOSITION: Hospitalist will evaluate Patient was agreeable with this plan. Preliminary Findings Only See Final Report For Complete Findings CTA CHEST: No evidence for pulmonary embolism. Diffuse, predominantly peripheral irregular ground-glass opacities noted throughout the lungs, right greater than left. Findings are nonspecific but most consistent with bilateral viral pneumonia in the setting of reported positive Covid status. No free intraperitoneal fluid or pneumoperitoneum. The aorta demonstrates mild atherosclerotic changes without aneurysm or dissection. The cardiac chambers are unremarkable. No significant precordial effusion. Nonspecific paratracheal and precarinal lymph nodes. Radiologist: Rashawn Thorne MD Past Med/Surg History Medical History H/O: HTN (hypertension) HLD (hyperlipidemia) Surgical History No pertinent past surgical history Social History Smoking Status: Never smoker Hx Alcohol Use: No Hx Substance Use: No Preferred Language: Syriac [employer] Intern Required: No Beliefs That Will Affect Care: None Current Living Situation: Spouse Feels Safe at Home: Yes Assistive Devices: Glasses Allergies Allergies Allergy/AdvReac Type Severity Reaction Status Date / Time lisinopril Allergy Unknown COUGH Verified 10/11/21 22:12 ofloxacin Allergy Unknown RASH Verified 10/11/21 22:12 Home Meds Home Medications Medication Instructions Recorded Confirmed amlodipine 5 mg tablet (Norvasc) 5 mg PO PM 08/27/21 10/11/21 aspirin 81 mg tablet,delayed 81 mg PO 3XWK 08/27/21 10/11/21 release (Aspirin Low Dose) calcium carbonate 500 mg calcium 500 mg PO HS 08/27/21 10/11/21 (1,250 mg) tablet (Calcium 500) cholecalciferol (vitamin D3) 25 25 mcg PO HS 08/27/21 10/11/21 mcg (1,000 unit) capsule (Vitamin D3) diclofenac sodium 1 % topical gel 0 g TOPICAL UD PRN 08/27/21 10/11/21 (Voltaren Arthritis Pain) hydralazine 25 mg tablet 25 mg PO BID 08/27/21 10/11/21 levothyroxine 50 mcg tablet 50 mcg PO QAM 08/27/21 10/11/21 (Synthroid) metoprolol succinate 50 mg 50 mg PO HS 08/27/21 10/11/21 tablet,extended release 24 hr (Toprol XL) multivitamin 1 tab PO QAM 08/27/21 10/11/21 nitroglycerin 0.4 mg sublingual 0.4 mg SUBLINGUAL UD PRN 08/27/21 10/11/21 tablet (Nitrostat) pantoprazole 20 mg tablet,delayed 20 mg PO QAM 08/27/21 10/11/21 release (Protonix) simvastatin 20 mg tablet (Zocor) 20 mg PO HS 08/27/21 10/11/21 vit C 250 mg-vit E 90 mg-zinc 40 1 tab PO BID 08/27/21 10/11/21 mg-copper 1 [id number] capsule (PreserVision AREDS-2) albuterol sulfate 90 mcg/actuation 2 puff INHALATION UD PRN 10/11/21 10/11/21 aerosol inhaler valsartan 320 mg tablet 320 mg PO DAILY 10/11/21 10/11/21 Results & Data (ED) Vital Signs Vital Signs - 24 hr 10/11/21 21:57 10/11/21 21:59 10/11/21 22:00 Temperature 37.6 C H Temperature Source Oral Pulse Rate 91 H 94 H 87 Pulse Rate from SpO2 Sensor 90 87 Pulse Rhythm Regular Pulse Strength Normal Respiratory Rate 20 20 28 H Respiratory Effort / Characteristics Non-Labored Respiratory Depth Normal Respiratory Pattern Blood Pressure 138/92 138/69 138/96 Blood Pressure Mean 107 92 110 Pulse Oximetry 91 92 91 Oxygen Delivery Method Room Air Room Air Room Air Sepsis Recent Fever Within 48 Hours No Sepsis New/Unexplained Change in Mental Status No Sepsis Action Taken by Nursing No Action Required 10/11/21 22:01 10/11/21 22:30 10/11/21 23:00 Temperature Temperature Source Pulse Rate 88 89 Pulse Rate from SpO2 Sensor 87 89 Pulse Rhythm Pulse Strength Respiratory Rate 21 34 H Respiratory Effort / Characteristics Respiratory Depth Respiratory Pattern Blood Pressure 153/76 H 110/70 Blood Pressure Mean 101 83 Pulse Oximetry 91 90 Oxygen Delivery Method Room Air Room Air Room Air Sepsis Recent Fever Within 48 Hours Sepsis New/Unexplained Change in Mental Status Sepsis Action Taken by Nursing 10/11/21 23:08 10/11/21 23:11 10/11/21 23:30 Temperature Temperature Source Pulse Rate 85 97 H Pulse Rate from SpO2 Sensor 99 H Pulse Rhythm Regular Pulse Strength Respiratory Rate 20 20 Respiratory Effort / Characteristics Non-Labored Respiratory Depth Normal Respiratory Pattern Regular Blood Pressure Blood Pressure Mean Pulse Oximetry 91 92 Oxygen Delivery Method Room Air Sepsis Recent Fever Within 48 Hours Sepsis New/Unexplained Change in Mental Status Sepsis Action Taken by Nursing 10/11/21 23:40 10/12/21 00:20 Temperature Temperature Source Pulse Rate 90 87 Pulse Rate from SpO2 Sensor 89 87 Pulse Rhythm Pulse Strength Respiratory Rate 28 H 21 Respiratory Effort / Characteristics Respiratory Depth Respiratory Pattern Blood Pressure 126/94 Blood Pressure Mean 104 Pulse Oximetry 94 93 Oxygen Delivery Method Room Air Sepsis Recent Fever Within 48 Hours Sepsis New/Unexplained Change in Mental Status Sepsis Action Taken by Nursing Laboratory Data Result diagrams: 10/11/21 22:45 10/11/21 22:45 Lab Results 10/11/21 10/11/21 10/11/21 Range/Units 22:45 22:45 22:45 WBC 7.05 (4.8-10.8) K/uL RBC 4.46 (4.2-5.4) M/uL Hgb 13.7 (12.0-16.0) g/dL Hct 40.4 (37-47) % MCV 90.6 (80-100) fL MCH 30.7 (25-34) pg MCHC 33.9 (32-36) g/dL RDW Std Deviation 43.5 (36.4-46.3) fL RDW Coeff of Sandee 13.2 (11.5-14.5) % Plt Count 244 (130-400) K/uL MPV 9.3 (7.4-10.4) fL Immature Gran % (Auto) 1.3 % Neut % (Auto) 77.7 % Lymph % (Auto) 10.5 % Crosby % (Auto) 10.4 % Eos % (Auto) 0.0 % Baso % (Auto) 0.1 % Neut # (Auto) 5.48 (1.4-6.5) K/uL Lymph # (Auto) 0.74 L (1.2-3.4) K/uL Crosby # (Auto) 0.73 H (0.11-0.59) K/uL Eos # (Auto) 0.00 (0-0.5) K/uL Baso # (Auto) 0.01 (0-0.2) K/uL Immature Gran # (Auto) 0.09 H (0.00-0.02) K/uL PT 11.4 (9.0-12.0) Seconds INR 1.1 (0.9-1.1) APTT 27.4 (21.0-31.0) Seconds PTT Ratio 1.0 D-Dimer 540 H* (0-500) ug/L FEU Sodium 137 (136-145) mmol/L Potassium 3.2 L (3.5-5.1) mmol/L Chloride 106 (98-107) mmol/L Carbon Dioxide 20 L (21-32) mmol/L Anion Gap 12.0 H (3-11) BUN 16 (7-18) mg/dl Creatinine 1.03 (0.6-1.2) mg/dl Est Cr Clr Drug Dosing 53.6 ml/min Est GFR ( Amer) 62.0 ml/min Est GFR (Non-Af Amer) 53.5 ml/min BUN/Creatinine Ratio 15.7 (10-20) Glucose 116 H (70-99) mg/dl Calcium 8.0 L (8.5-10.1) mg/dl Magnesium 1.8 (1.8-2.4) mg/dl Total Bilirubin 0.6 (0.2-1) mg/dl AST 91 H (15-37) U/L ALT 77 (12-78) U/L Alkaline Phosphatase 147 H (45-117) U/L Troponin I < 0.015 (0-0.045) ng/ml C-Reactive Protein 7.97 H (0-0.29) mg/dl Total Protein 6.5 (6.4-8.2) gm/dl Albumin 2.6 L (3.4-5.0) gm/dl Globulin 3.9 (2.5-4.0) gm/dl Albumin/Globulin Ratio 0.7 L (0.9-2) Urine Color Urine Appearance (Clear) Urine pH (4.5-7.5) Ur Specific [place] (1.000-1.030) Urine Protein (Negative) Urine Glucose (UA) (Negative) Urine Ketones (Negative) Urine Blood (Negative) Urine Nitrite (Negative) Urine Bilirubin (Negative) Urine Urobilinogen (Negative) Ur Leukocyte Esterase (Negative) Urine WBC (Auto) (0-5) /hpf Urine RBC (Auto) (0-4) /hpf U Hyaline Cast (Auto) (0-5) /lpf U Epithel Cells (Auto) (0-5) /lpf Urine Bacteria (Auto) (Negative) SARS-CoV-2 (PCR) (Negative) 10/11/21 10/11/21 Range/Units 22:45 22:45 WBC (4.8-10.8) K/uL RBC (4.2-5.4) M/uL Hgb (12.0-16.0) g/dL Hct (37-47) % MCV (80-100) fL MCH (25-34) pg MCHC (32-36) g/dL RDW Std Deviation (36.4-46.3) fL RDW Coeff of Sandee (11.5-14.5) % Plt Count (130-400) K/uL MPV (7.4-10.4) fL Immature Gran % (Auto) % Neut % (Auto) % Lymph % (Auto) % Crosby % (Auto) % Eos % (Auto) % Baso % (Auto) % Neut # (Auto) (1.4-6.5) K/uL Lymph # (Auto) (1.2-3.4) K/uL Crosby # (Auto) (0.11-0.59) K/uL Eos # (Auto) (0-0.5) K/uL Baso # (Auto) (0-0.2) K/uL Immature Gran # (Auto) (0.00-0.02) K/uL PT (9.0-12.0) Seconds INR (0.9-1.1) APTT (21.0-31.0) Seconds PTT Ratio D-Dimer (0-500) ug/L FEU Sodium (136-145) mmol/L Potassium (3.5-5.1) mmol/L Chloride (98-107) mmol/L Carbon Dioxide (21-32) mmol/L Anion Gap (3-11) BUN (7-18) mg/dl Creatinine (0.6-1.2) mg/dl Est Cr Clr Drug Dosing ml/min Est GFR ( Amer) ml/min Est GFR (Non-Af Amer) ml/min BUN/Creatinine Ratio (10-20) Glucose (70-99) mg/dl Calcium (8.5-10.1) mg/dl Magnesium (1.8-2.4) mg/dl Total Bilirubin (0.2-1) mg/dl AST (15-37) U/L ALT (12-78) U/L Alkaline Phosphatase (45-117) U/L Troponin I (0-0.045) ng/ml C-Reactive Protein (0-0.29) mg/dl Total Protein (6.4-8.2) gm/dl Albumin (3.4-5.0) gm/dl Globulin (2.5-4.0) gm/dl Albumin/Globulin Ratio (0.9-2) Urine Color Dark Yellow Urine Appearance Clear (Clear) Urine pH 5.5 (4.5-7.5) Ur Specific [place] 1.022 (1.000-1.030) Urine Protein 1+ H (Negative) Urine Glucose (UA) Negative (Negative) Urine Ketones Trace H (Negative) Urine Blood Negative (Negative) Urine Nitrite Negative (Negative) Urine Bilirubin Negative (Negative) Urine Urobilinogen Negative (Negative) Ur Leukocyte Esterase 2+ H (Negative) Urine WBC (Auto) >30 H (0-5) /hpf Urine RBC (Auto) 5-10 H (0-4) /hpf U Hyaline Cast (Auto) 10-30 H (0-5) /lpf U Epithel Cells (Auto) >30 H (0-5) /lpf Urine Bacteria (Auto) 1+ H (Negative) SARS-CoV-2 (PCR) POSITIVE A* (Negative) Administered Medications Discontinued Medications Acetaminophen (Acetaminophen 500 Mg Tab) 1,000 mg PO NOW STA Stop: 10/11/21 22:52 Last Admin: 10/11/21 23:26 Dose: 1,000 mg Documented by: [id number] Benzonatate (Benzonatate 100 Mg Capsule) 100 mg PO NOW ONE Stop: 10/11/21 23:49 Last Admin: 10/11/21 23:56 Dose: 100 mg Documented by: [id number] Ceftriaxone Sodium (Rocephin) 2,000 mg in 70 mls @ 140 mls/hr IV NOW STA Stop: 10/12/21 00:07 Last Infusion: 10/12/21 00:26 Dose: 0 mls/hr Documented by: [id number] Admin: 10/11/21 23:56 Dose: 140 mls/hr Documented by: [id number] Sodium Chloride (Nss) 500 mls @ 999 mls/hr IV .Q31M ONE Stop: 10/12/21 00:08 Last Admin: 10/12/21 00:49 Dose: 999 mls/hr Documented by: [id number] Potassium Chloride (K Clint / Wtr) 10 meq in 100 mls @ 100 mls/hr IV ONE ONE Stop: 10/12/21 00:43 Last Admin: 10/12/21 00:49 Dose: 100 mls/hr Documented by: [id number] Ioversol (Optiray 320 125ml) 120 ml IV ONCE ONE Stop: 10/12/21 00:49 Last Admin: 10/12/21 00:48 Dose: 120 ml Documented by: [id number] Imaging Data Radiologist's Impression: Chest X-Ray 10/11/21 22:01 SINGLE VIEW CHEST CLINICAL HISTORY: Dyspnea. Covid. FINDINGS: An AP, portable, upright chest radiograph is compared to study dated 08/27/2021. The heart is mildly enlarged noting atherosclerotic calcification of the thoracic aorta. The pulmonary vasculature is noncongested. Multifocal and predominantly subpleural consolidation is seen throughout both lung. No large pleural effusion or pneumothorax is seen. The skeletal structures are osteopenic. The bony thorax is grossly intact. IMPRESSION: Multifocal airspace consolidation is consistent with the reported history of a viral pneumonia. Radiographic follow-up to resolution is recommended. ACT 112: Negative or not required by law. Electronically signed by: Kelechi Quintero M.D. 10/11/2021 10:15 PM Discharge Plan Visit Data Chief Complaint: Shortness of Breath/Dyspnea Stated Complaint: COVID SX/ INCREASED SOB ED Provider: Hossein Acosta Discharge Problem: 2019 novel coronavirus-infected pneumonia (NCIP), Hypokalemia, Cough, Acute UTI, Fatigue Patient Disposition: Being Evaluated by Hospitalist Forms Stand Alone Forms: My [facility] [place] [facility] Prescriptions Prescriptions: No Action albuterol sulfate 90 mcg/actuation HFA aerosol inhaler 2 puff INHALATION UD PRN (Reason: Shortness Of Breath Or Wheezing) RF: 0 valsartan 320 mg tablet 320 mg PO DAILY RF: 0 hydralazine 25 mg tablet 25 mg PO BID RF: 0 amlodipine [Norvasc] 5 mg tablet 5 mg PO PM RF: 0 pantoprazole [Protonix] 20 mg tablet,delayed release (DR/EC) 20 mg PO QAM RF: 0 levothyroxine [Synthroid] 50 mcg tablet 50 mcg PO QAM RF: 0 multivitamin Tablet 1 tab PO QAM RF: 0 metoprolol succinate [Toprol XL] 50 mg tablet extended release 24 hr 50 mg PO HS RF: 0 aspirin [Aspirin Low Dose] 81 mg Tablet,Delayed Release (Dr/Ec) 81 mg PO 3XWK RF: 0 calcium carbonate [Calcium 500] 500 mg calcium (1,250 mg) Tablet 500 mg PO HS RF: 0 simvastatin [Zocor] 20 mg tablet 20 mg PO HS RF: 0 nitroglycerin [Nitrostat] 0.4 mg Tablet, Sublingual 0.4 mg sublingual UD PRN (Reason: Chest Pain) RF: 0 cholecalciferol (vitamin D3) [Vitamin D3] 25 mcg (1,000 unit) Capsule 25 mcg PO HS RF: 0 diclofenac sodium [Voltaren Arthritis Pain] 1 % gel 0 g TOPICAL UD PRN (Reason: Pain) RF: 0 PreserVision AREDS-2 250-90-40-1 mg Capsule 1 tab PO BID RF: 0 Referrals Referrals: Connie Vidales [Primary Care Provider] -
[2021-10-11 23:07] LABS: Basophils # (auto) 0.01 K/uL (0-0.2); Basophils % (auto) 0.1 %; Hematocrit (blood only) 40.4 % (37-47); Hemoglobin 13.7 g/dL (12.0-16.0); Immature Granulocytes # (auto) 0.09 K/uL (0.00-0.02); Immature Granulocytes % (auto) 1.3 %; Lymphocytes # (auto) 0.74 K/uL (1.2-3.4); Lymphocytes % (auto) 10.5 %; Mean Corpuscular Hemoglobin 30.7 pg (25-34); Mean Corpuscular Hgb Conc 33.9 g/dL (32-36); Mean Corpuscular Volume 90.6 fL (80-100); Mean Platelet Volume 9.3 fL (7.4-10.4); Monocytes # (auto) 0.73 K/uL (0.11-0.59); Monocytes % (auto) 10.4 %; Neutrophils # (auto) 5.48 K/uL (1.4-6.5); Neutrophils % (auto) 77.7 %; Platelet Count 244 K/uL (130-400); RDW Coefficient of Variation 13.2 % (11.5-14.5); RDW Standard Deviation 43.5 fL (36.4-46.3); Red Blood Count 4.46 M/uL (4.2-5.4); White Blood Count 7.05 K/uL (4.8-10.8)
[2021-10-11 23:20] LABS: INR 1.1 (0.9-1.1); Partial Thromboplastin Time 27.4 Seconds (21.0-31.0); Prothrombin Time 11.4 Seconds (9.0-12.0)
[2021-10-11 23:23] LABS: Alanine Aminotransferase 77 U/L (12-78); Albumin Level 2.6 gm/dl (3.4-5.0); Appearance Urine Clear (Clear); Aspartate Aminotransferase 91 U/L (15-37); BUN Creatinine Ratio 15.7 (10-20); Bacteria Urine Automated 1+ (Negative); Bilirubin Urine Negative (Negative); Blood Urea Nitrogen 16 mg/dl (7-18); Blood Urine Negative (Negative); C Reactive Protein 7.97 mg/dl (0-0.29); Carbon Dioxide 20 mmol/L (21-32); Chloride 106 mmol/L (98-107); Color Urine Dark Yellow; Creatinine Clr Calc Pharmacy 53.6 ml/min; Epithelial Cell Urine Auto >30 /lpf (0-5); Est GFR (Non-African American) 53.5 ml/min; Glucose 116 mg/dl (70-99); Glucose Urine UA Negative (Negative); Ketones Urine Trace (Negative); Leukocyte Esterase Urine 2+ (Negative); Magnesium 1.8 mg/dl (1.8-2.4); Nitrite Urine Negative (Negative); Potassium 3.2 mmol/L (3.5-5.1); Protein Urine 1+ (Negative); Sodium 137 mmol/L (136-145); Specific Gravity Urine 1.022 (1.000-1.030); Urobilinogen Urine Negative (Negative); WBC Urine Automated >30 /hpf (0-5); pH Urine 5.5 (4.5-7.5)
[2021-10-11 23:28] LABS: Albumin Globulin Ratio 0.7 (0.9-2); Alkaline Phosphatase 147 U/L (45-117); Bilirubin,Total 0.6 mg/dl (0.2-1); Globulin 3.9 gm/dl (2.5-4.0); Total Protein 6.5 gm/dl (6.4-8.2); Troponin I < 0.015 ng/ml (0-0.045)
[2021-10-11 23:37] LABS: D Dimer 540 ug/L FEU (0-500)
[2021-10-11] MEDS ORDERED: cefTRIAXone SODIUM 2,000 MG/70 ML BAG IV STA (23:38)
[2021-10-11] MEDS ORDERED: SODIUM CHLORIDE 0.9% 500 ML IV ONE (23:38)
[2021-10-11] MEDS ORDERED: POTASSIUM CHLORIDE / WTR 10 MEQ/100 ML PLCT IV ONE (23:44)
[2021-10-11] MEDS ORDERED: BENZONATATE 100 MG CAPSULE PO ONE (23:48)
[2021-10-12] MEDS ORDERED: OPTIRAY 320 125ml IV ONE (00:48)
[2021-10-12] MEDS ORDERED: DICLOFENAC SOD 1% GEL 100 GM TUBE EXT PRN (04:32)
[2021-10-12] MEDS ORDERED: ALBUTEROL HFA 8 GM INHALER INH PRN (04:32)
[2021-10-12] MEDS ORDERED: guaiFENesin/CODEINE 100MG/10MG 5ML UDC PO PRN (04:32)
[2021-10-12] MEDS ORDERED: ACETAMINOPHEN 325 MG TAB PO PRN (04:32)
[2021-10-12] MEDS ORDERED: NITROGLYCERIN SL 0.4 MG/TAB TAB SL PRN (04:32)
--- NOTE | 2021-10-12 05:02 | History and Physical Report ---
DATE OF ADMISSION: 10/12/2021. CHIEF COMPLAINT: COVID pneumonia. HISTORY OF PRESENT ILLNESS: This 76-year-old female with past medical history significant for hypertension, hypothyroidism, history of GERD, hyperlipidemia, history of nonobstructive CAD with 40% CAD lesions diagnosed 17 years ago, medical management. Patient seem to have bronchitis symptoms since last 2 weeks of cough, low-grade fever, body aches, poor appetite and it is not getting better, it got worse today , so she came to the ER and she was diagnosed with COVID and she is saturating okay on room air. She has mild temperature spike. D-dimer was elevated at 540. CT of the chest, no PE. Possible UTI on urinalysis. Currently hemodynamically stable. ALLERGIES: LISINOPRIL, OFLOXACIN. PAST MEDICAL HISTORY: As mentioned above. PAST SURGICAL HISTORY: Cardiac catheterization, dilatation and curettage, hysterectomy, laparoscopic cholecystectomy, partial removal of eye fluid on the left side, tonsillectomy, cataracts bilateral. MEDICATIONS: The patient is on albuterol 2 puffs inhalation p.r.n., amlodipine 5 mg p.o. a.m., aspirin 81 mg p.o. 3 times a week, calcium carbonate 500 mg p.o. at bedtime, vitamin D 25 mcg p.o. at bedtime, diclofenac sodium topical p.r.n., hydralazine 25 mg p.o. b.i.d., levothyroxine 50 mcg p.o. a.m., metoprolol succinate 50 mg p.o. at bedtime, multivitamin 1 tablet p.o., nitroglycerin 0.4 mg sublingual p.r.n., Protonix 40 mg p.o. a.m., PreserVision 1 tablet p.o. b.i.d., Zocor 20 mg p.o. at bedtime, valsartan 320 mg p.o. daily. FAMILY HISTORY: Significant for sister had cancer; father had heart disorder, hypotension; mother had heart disorder, hypotension. SOCIAL HISTORY: . Quit smoking in 1978, 7 standard drinks of alcohol per week. No drug use. REVIEW OF SYSTEMS: As per HPI. Rest of the review of systems is negative. PHYSICAL EXAMINATION: GENERAL: The patient is of moderate build, not in acute distress. VITAL SIGNS: Temperature 37.6, pulse 70, respiratory rate 20s, blood pressure 174/94, oxygen 94% on room air. HEENT: Pupils equal, round and reactive to light. Oral mucosa moist. NECK: No JVD, no neck masses. CARDIOVASCULAR: S1 and S2 heard. Regular rate and rhythm. No murmur, no gallop. RESPIRATORY SYSTEM: Normal AP diameter. No accessory muscle use. No wheezing, no crackles. ABDOMEN: Soft, bowel sounds are present, nontender, no distention. CENTRAL NERVOUS SYSTEM: Cranial nerves II-XII grossly intact, nonfocal. EXTREMITIES: No edema, no erythema. LABORATORY DATA: WBC 7, hemoglobin 13.7, hematocrit 40.4, platelets 244. PT 11.4, INR 1.1, APTT 27.4, D-dimer 540. Sodium 137, potassium 3.2, chloride 106, bicarbonate 20, BUN 16, creatinine 1.03, serum glucose 116, calcium 8, magnesium 1.8, total bilirubin 0.6, AST 91, ALT 77, alkaline phosphatase 147. Troponin I less than 0.015. CRP 7.97. Urinalysis, +2 leukocyte esterase, +1 bacteria. SARS-CoV-2 PCR positive. IMAGING DATA: Chest x-ray, multifocal airspace consolidation consistent with reported history of viral pneumonia. CT of the chest, preliminary report, no PE, consistent with viral pneumonia. EKG: Normal sinus rhythm at a rate of 84. Nonspecific ST abnormalities seen. No significant change was found. ASSESSMENT AND PLAN: This is a 76-year-old female presents with COVID pneumonia. 1. COVID pneumonia, ongoing symptoms for the last 2 weeks. , saturating okay on room air. We will continue with the steroids and inhalers as needed. Supportive care. Monitor in the medical floor. 2. History of nonobstructive coronary artery disease. Continue beta ori, aspirin, statin. 3. History of hypertension. Continue her home medication of metoprolol succinate, valsartan, hydralazine, amlodipine. We will monitor the blood pressure. 4. Hypokalemia. We will replace. 5. Hyperlipidemia. On statin. 6. Gastroesophageal reflux disease. On Protonix. 7. Hypothyroidism. On Synthroid. 8. Possible UTI. Follow cultures. Rocephin. 8. Deep venous thrombosis prophylaxis. Lovenox. DISPOSITION: Closely monitor in medical floor. PT/OT prior to discharge. Social service to help with discharge planning. Job ID: [id number] NAS
[2021-10-12] MEDS: LEVOTHYROXINE SODIUM 50 MCG TABLET PO SCH (06:18)
[2021-10-12] MEDS: D5W AND NSS 1,000 ML IV SCH ×2 (06:19→16:42)
--- NOTE | 2021-10-12 06:54 | CT Scan Report ---
CT ANGIOGRAM OF THE CHEST CLINICAL HISTORY: Elevated d-dimer. Covid. Dyspnea. COMPARISON STUDY: Chest x-ray dated 10/11/2021. TECHNIQUE: Following the IV administration of 120 cc of Optiray 320, CT angiogram of the chest was pe rformed from the upper abdomen to the thoracic inlet utilizing the pulmonary embolus protocol. Images are reviewed in the axial, sagittal, and coronal planes. 3-D MIPS images are created and assessed. I V contrast was administered without complication. A dose lowering technique was utilized adhering to the principles of ALARA. CT DOSE: 383.04 mGy.cm FINDINGS: Thyroid: Imaged portions of the thyroid gland are normal in size and attenuation. Thoracic aorta: There is atherosclerotic calcification of the thoracic aorta, which is normal in giovanna yashira and demonstrates bovine variant arch anatomy. No dissection is seen. Pulmonary vasculature: The pulmonary trunk is normal in caliber. There are no filling defects identif ied in main, lobar, or segmental pulmonary branches to suggest pulmonary embolus. Heart: The heart is normal in size and without pericardial effusion. There are coronary artery calcif ications. Lungs and pleural spaces: Multifocal groundglass consolidation is seen throughout both lungs with a s ubpleural predominance. No pleural effusion is identified. The trachea and central airways are clear. Mediastinum: There is no mediastinal lymphadenopathy. Belen: Clear. Axillae: There is no axillary lymphadenopathy. Upper abdomen: There is a small hiatal hernia. Partially visualized upper abdominal viscera is otherw ise within normal limits. Skeletal structures: The skeletal structures are osteopenic. No lytic or blastic bony lesions are see n. IMPRESSION: 1. There is no evidence of pulmonary embolus in the main, lobar, or segmental pulmonary arteries. 2. Multifocal groundglass consolidation is consistent with the reported history of a viral pneumonia. Radiographic follow-up to resolution is recommended. ACT 112: Negative or not required by law. Electronically signed by: Kelechi Quintero M.D. 10/12/2021 6:53 AM
--- NOTE | 2021-10-12 07:33 | Electrocardiogram Report ---
Test Reason : Blood Pressure : / mmHG Vent. Rate : 088 BPM Atrial Rate : 088 BPM P-R Int : 140 ms QRS Dur : 076 ms QT Int : 376 ms P-R-T Axes : 071 -38 010 degrees QTc Int : 454 ms Poor data quality, interpretation may be adversely affected Normal sinus rhythm Left axis deviation Minimal voltage criteria for LVH, may be normal variant Nonspecific ST and T wave abnormality Abnormal ECG When compared with ECG of 28-AUG-2021 06:35, No significant change was found Confirmed by Peng Ye ([id number]) on 10/12/2021 7:33:27 AM Referred By: REFERRED SELF Confirmed By:Gato Ye
[2021-10-12 09:21] LABS: Basophils # (auto) 0.02 K/uL (0-0.2); Basophils % (auto) 0.3 %; Eosinophils # (auto) 0.04 K/uL (0-0.5); Eosinophils % (auto) 0.6 %; Hematocrit (blood only) 37.7 % (37-47); Hemoglobin 12.7 g/dL (12.0-16.0); Immature Granulocytes # (auto) 0.08 K/uL (0.00-0.02); Immature Granulocytes % (auto) 1.2 %; Lymphocytes # (auto) 0.76 K/uL (1.2-3.4); Lymphocytes % (auto) 11.7 %; Mean Corpuscular Hemoglobin 30.3 pg (25-34); Mean Corpuscular Hgb Conc 33.7 g/dL (32-36); Monocytes # (auto) 0.47 K/uL (0.11-0.59); Monocytes % (auto) 7.2 %; Neutrophils # (auto) 5.13 K/uL (1.4-6.5); Platelet Count 235 K/uL (130-400); RDW Coefficient of Variation 13.3 % (11.5-14.5); RDW Standard Deviation 43.9 fL (36.4-46.3); Red Blood Count 4.19 M/uL (4.2-5.4)
[2021-10-12 09:38] LABS: BUN Creatinine Ratio 15.4 (10-20); Creatinine Clr Calc Pharmacy 61.3 ml/min; Magnesium 1.9 mg/dl (1.8-2.4); Potassium 3.1 mmol/L (3.5-5.1)
[2021-10-12] MEDS: PANTOprazole 40 MG TAB PO SCH (09:39)
[2021-10-12] MEDS: MULTIVITAMIN TAB PO SCH (09:39)
[2021-10-12] MEDS: VALSARTAN 80 MG TAB PO SCH (09:39)
[2021-10-12] MEDS: ENOXAPARIN INJ 40 MG/0.4 ML SYR SQ SCH ×2 (09:39→21:29)
[2021-10-12] MEDS: BENZONATATE 100 MG CAPSULE PO SCH ×3 (09:39→21:29)
[2021-10-12] MEDS: CEROVITE ADV FORMULA TAB PO SCH (09:39)
[2021-10-12] MEDS: FLUTICASONE FUROATE 100MCG 14 PUFFS/INHALER INH SCH (09:39)
[2021-10-12] MEDS: hydrALAZINE HCL 25 MG TAB PO SCH ×2 (09:40→21:29)
[2021-10-12] MEDS: dexAMETHasone 6 MG in SYRINGE 0 ML IV SCH (09:41)
[2021-10-12] MEDS ORDERED: POTASSIUM CHLORIDE CRTAB 20 MEQ TABCR PO STA (15:48)
[2021-10-12] MEDS: SIMVASTATIN 20 MG TAB PO SCH (21:28)
[2021-10-12] MEDS: METOPROLOL SUCC 50MG EXT REL TAB PO SCH (21:28)
[2021-10-12] MEDS: CALCIUM 600MG + VIT D 400 IU TAB PO SCH (21:28)
[2021-10-12] MEDS: CHOLECALCIFEROL 1,000 UNITS 25 MCG TAB PO SCH (21:29)
[2021-10-12] MEDS: amLODIPine BESYLATE 5 MG TAB PO SCH (21:29)
[2021-10-12] MEDS: cefTRIAXone SODIUM 2,000 MG in DEXTROSE 5% 50 ML IV SCH (21:34)
[2021-10-13 05:39] LABS: Basophils # (auto) 0.01 K/uL (0-0.2); Basophils % (auto) 0.3 %; Eosinophils # (auto) 0.01 K/uL (0-0.5); Eosinophils % (auto) 0.3 %; Hematocrit (blood only) 37.4 % (37-47); Hemoglobin 12.6 g/dL (12.0-16.0); Immature Granulocytes # (auto) 0.07 K/uL (0.00-0.02); Immature Granulocytes % (auto) 1.8 %; Lymphocytes # (auto) 0.64 K/uL (1.2-3.4); Lymphocytes % (auto) 16.3 %; Mean Corpuscular Hemoglobin 30.3 pg (25-34); Mean Corpuscular Hgb Conc 33.7 g/dL (32-36); Mean Corpuscular Volume 89.9 fL (80-100); Mean Platelet Volume 8.7 fL (7.4-10.4); Monocytes % (auto) 12.8 %; Neutrophils # (auto) 2.69 K/uL (1.4-6.5); Neutrophils % (auto) 68.5 %; Platelet Count 258 K/uL (130-400); RDW Standard Deviation 42.5 fL (36.4-46.3); Red Blood Count 4.16 M/uL (4.2-5.4); White Blood Count 3.92 K/uL (4.8-10.8)
[2021-10-13 06:18] LABS: BUN Creatinine Ratio 16.8 (10-20); Calcium 8.6 mg/dl (8.5-10.1); Est GFR (Non-African American) 78.5 ml/min; Phosphorus 2.5 mg/dl (2.5-4.9); Potassium 3.7 mmol/L (3.5-5.1)
[2021-10-13] MEDS: LEVOTHYROXINE SODIUM 50 MCG TABLET PO SCH (06:32)
[2021-10-13] MEDS: VALSARTAN 80 MG TAB PO SCH (08:41)
[2021-10-13] MEDS: MULTIVITAMIN TAB PO SCH (08:41)
[2021-10-13] MEDS: hydrALAZINE HCL 25 MG TAB PO SCH ×2 (08:41→21:22)
[2021-10-13] MEDS: PANTOprazole 40 MG TAB PO SCH (08:41)
[2021-10-13] MEDS: CEROVITE ADV FORMULA TAB PO SCH (08:41)
[2021-10-13] MEDS: BENZONATATE 100 MG CAPSULE PO SCH ×3 (08:41→21:20)
[2021-10-13] MEDS: FLUTICASONE FUROATE 100MCG 14 PUFFS/INHALER INH SCH (08:42)
[2021-10-13] MEDS: dexAMETHasone 6 MG in SYRINGE 0 ML IV SCH (08:42)
[2021-10-13] MEDS: ENOXAPARIN INJ 40 MG/0.4 ML SYR SQ SCH ×2 (08:42→21:20)
[2021-10-13] MEDS ORDERED: FUROSEMIDE 40 MG/4 ML VIAL IV ONE (11:43)
--- NOTE | 2021-10-13 16:30 | Hospitalist Progress Note ---
Date of Service October 13, 2021 Assessment & Plan (1) 2019 novel coronavirus-infected pneumonia (NCIP): Plan: Not being vaccinated Symptoms have been ongoing for about 2 weeks Has been getting dexamethasone Saturating normally on room air Supportive treatment with cough suppressant, nebulized bronchodilator and spirometer with flutter valves Proning as possible (2) Acute UTI: Plan: Has been on Rocephin We will check culture (3) Hyperglycemia: Plan: ACH his blood sugar SSI coverage Plan: DVT prophylaxis Subcu Lovenox CODE STATUS Full Discussed with the daughter Admission and Anticipated Discharge Date Admission Date: October 12, 2021 Subjective 10/13/2021 The patient was seen and examined in medical floor in the Covky room She has been feeling much better Has cough but is not require any oxygen to maintain saturation Review of Systems Review of Systems: All systems reviewed and are unremarkable except as noted below Respiratory: Minimal or no shortness of breath at rest Physical Exam Physical Exam: Lying in bed comfortably Constitutional: well developed, well nourished, + ill appearing and + obese Eyes: PERRL, conjunctivae normal, anicteric sclerae ENMT: external ear and nose normal, oropharynx normal Neck: trachea midline, no thyromegaly Respiratory: + respiratory distress (Minimal distress) and + cough Auscultation: + diminished lung sounds and + crackles (Normal crackles at the bases) Minimal shortness of breath at rest Cardiovascular: Rate/Rhythm: regular rate and regular rhythm; not tachycardic Heart Sounds: normal S1 and normal S2; no abnormal opening sounds Extremities: no edema Gastrointestinal (Abdomen): Inspection/Auscultation: normal bowel sounds; abdomen not distended Percussion/Palpation: abdomen soft; abdomen nontender Musculoskeletal: No acute arthritis in any joint Neurologic: Alert, awake and oriented x3 Results & Data Results & Data ([facility]) Vital Signs (Past 12 Hours) Vital Signs Temp Pulse Resp BP Pulse Ox 10/13/21 15:26 36.7 C 78 16 129/81 95 10/13/21 07:55 36.5 C 75 16 155/95 H 95 Laboratory Results Short CBC 10/13/21 Range/Units 05:28 WBC 3.92 L (4.8-10.8) K/uL Hgb 12.6 (12.0-16.0) g/dL Hct 37.4 (37-47) % Plt Count 258 (130-400) K/uL BMP 10/13/21 05:28 Sodium 140 Potassium 3.7 D Chloride 112 H Carbon Dioxide 20 L BUN 13 Creatinine 0.75 Glucose 113 H Calcium 8.6 Medications Administered Current Inpatient Medications Acetaminophen (Acetaminophen 325 Mg Tab) 650 mg PO Q4H PRN PRN Reason: pain/fever Stop: 11/11/21 04:31 Albuterol (Albuterol Hfa 8 Gm Inhaler) 2 puffs INH DAILY PRN PRN Reason: Shortness Of Breath Or Wheezin Stop: 11/11/21 04:31 Amlodipine Besylate (Amlodipine Besylate 5 Mg Tab) 5 mg PO PM [facility] Stop: 11/11/21 20:59 Last Admin: 10/12/21 21:29 Dose: 5 mg Documented by: Aspirin (Aspirin 81 Mg Ectab) 81 mg PO MoWeFr@0900 [facility] Stop: 11/13/21 08:59 Benzonatate (Benzonatate 100 Mg Capsule) 100 mg PO TID [facility] Stop: 11/11/21 08:59 Last Admin: 10/13/21 12:37 Dose: 100 mg Documented by: Diclofenac Sodium (Diclofenac Sod 1% Gel 100 Gm Tube) 4 gm EXT DAILY PRN PRN Reason: Pain Stop: 11/11/21 04:31 Enoxaparin Sodium (Enoxaparin Inj 40 Mg/0.4 Ml Syr) 40 mg SQ Q12H [facility] Stop: 11/11/21 08:59 Last Admin: 10/13/21 08:42 Dose: 40 mg Documented by: Fluticasone Furoate (Fluticasone Furoate 100mcg 14 Puffs/Inhaler) 1 puffs INH DAILY [facility] Stop: 11/11/21 08:59 Last Admin: 10/13/21 08:42 Dose: 1 puffs Documented by: Guaifenesin/Codeine Phosphate (Guaifenesin/Codeine 100mg/10mg 5ml Udc) 5 ml PO Q6H PRN PRN Reason: Cough Stop: 11/11/21 04:31 Hydralazine HCl (Hydralazine Hcl 25 Mg Tab) 25 mg PO BID [facility] Stop: 11/11/21 08:59 Last Admin: 10/13/21 08:41 Dose: 25 mg Documented by: Dexamethasone 6 mg/ Syringe 1.5 mls @ 1 mls/min IV DAILY [facility] Stop: 10/22/21 08:59 Last Admin: 10/13/21 08:42 Dose: 1 mls/min Documented by: Ceftriaxone Sodium 2,000 mg/ (Dextrose) 70 mls @ 100 mls/hr IV Q24H [facility]; Protocol Stop: 10/22/21 21:59 Last Infusion: 10/12/21 22:28 Dose: Infused Documented by: Levothyroxine Sodium (Levothyroxine Sodium 50 Mcg Tablet) 50 mcg PO DAILYBB [facility] Stop: 11/11/21 06:29 Last Admin: 10/13/21 06:32 Dose: 50 mcg Documented by: Metoprolol Succinate (Metoprolol Succ 50mg Ext Rel Tab) 50 mg PO [facility] Stop: 11/11/21 20:59 Last Admin: 10/12/21 21:28 Dose: 50 mg Documented by: Multivitamins (Multivitamin Tab) 1 tab PO QAM [facility] Stop: 11/11/21 08:59 Last Admin: 10/13/21 08:41 Dose: 1 tab Documented by: Multivitamins/Minerals (Calcium 600mg + Vit D 400 Iu Tab) 1 tab PO HS [facility] Stop: 11/11/21 20:59 Last Admin: 10/12/21 21:28 Dose: 1 tab Documented by: Multivitamins/Minerals (Cerovite Adv Formula Tab) 1 tab PO DAILY [facility] Stop: 11/11/21 08:59 Last Admin: 10/13/21 08:41 Dose: 1 tab Documented by: Nitroglycerin (Nitroglycerin Sl 0.4 Mg/Tab Tab) 0.4 mg SL UD PRN PRN Reason: Chest Pain Stop: 11/11/21 04:31 Pantoprazole Sodium (Pantoprazole 40 Mg Tab) 40 mg PO QAM [facility] Stop: 11/11/21 08:59 Last Admin: 10/13/21 08:41 Dose: 40 mg Documented by: Simvastatin (Simvastatin 20 Mg Tab) 20 mg PO [facility] Stop: 11/11/21 20:59 Last Admin: 10/12/21 21:28 Dose: 20 mg Documented by: Valsartan (Valsartan 80 Mg Tab) 320 mg PO DAILY [facility] Stop: 11/11/21 08:59 Last Admin: 10/13/21 08:41 Dose: 320 mg Documented by: Vitamin D (Cholecalciferol 1,000 Units 25 Mcg Tab) 1,000 units PO HS [facility] Stop: 11/11/21 20:59 Last Admin: 10/12/21 21:29 Dose: 1,000 units Documented by:
[2021-10-13] MEDS: CHOLECALCIFEROL 1,000 UNITS 25 MCG TAB PO SCH (21:20)
[2021-10-13] MEDS: CALCIUM 600MG + VIT D 400 IU TAB PO SCH (21:20)
[2021-10-13] MEDS: amLODIPine BESYLATE 5 MG TAB PO SCH (21:21)
[2021-10-13] MEDS: SIMVASTATIN 20 MG TAB PO SCH (21:21)
[2021-10-13] MEDS: METOPROLOL SUCC 50MG EXT REL TAB PO SCH (21:22)
[2021-10-13] MEDS: cefTRIAXone SODIUM 2,000 MG in DEXTROSE 5% 50 ML IV SCH (21:25)
[2021-10-14] MEDS: LEVOTHYROXINE SODIUM 50 MCG TABLET PO SCH (06:10)
[2021-10-14] MEDS ORDERED: ASPIRIN 81 MG ECTAB PO SCH (09:00)
[2021-10-14] MEDS: BENZONATATE 100 MG CAPSULE PO SCH ×3 (09:01→21:28)
[2021-10-14] MEDS: FLUTICASONE FUROATE 100MCG 14 PUFFS/INHALER INH SCH (09:01)
[2021-10-14] MEDS: ENOXAPARIN INJ 40 MG/0.4 ML SYR SQ SCH ×2 (09:01→21:27)
[2021-10-14] MEDS: hydrALAZINE HCL 25 MG TAB PO SCH ×2 (09:01→21:29)
[2021-10-14] MEDS: dexAMETHasone 6 MG in SYRINGE 0 ML IV SCH (09:01)
[2021-10-14] MEDS: CEROVITE ADV FORMULA TAB PO SCH (09:02)
[2021-10-14] MEDS: VALSARTAN 80 MG TAB PO SCH (09:02)
[2021-10-14] MEDS: PANTOprazole 40 MG TAB PO SCH (09:02)
[2021-10-14] MEDS: MULTIVITAMIN TAB PO SCH (09:02)
--- NOTE | 2021-10-14 17:07 | Hospitalist Progress Note ---
Date of Service October 14, 2021 Assessment & Plan (1) 2019 novel coronavirus-infected pneumonia (NCIP): Plan: Not being vaccinated Symptoms have been ongoing for about 2 weeks Has been getting dexamethasone Saturating normally on room air Supportive treatment with cough suppressant, nebulized bronchodilator and spirometer with flutter valves Proning as possible She has been much better and does not require any oxygen to maintain saturation Still complains to have some chest tightness-will not send her home today Plan to do it to a stable O2 saturation tomorrow and possible discharge tomorrow (2) Acute UTI: Plan: Has been on Rocephin We will check culture Urine is growing E. coli-pansensitive We will change antibiotic to oral and continue for about 7 days (3) Hyperglycemia: Plan: ACH his blood sugar SSI coverage Plan: DVT prophylaxis Subcu Lovenox CODE STATUS Full Discussed with the daughter Admission and Anticipated Discharge Date Admission Date: October 12, 2021 Subjective 10/13/2021 The patient was seen and examined in medical floor in the Covid room She has been feeling much better Has cough but is not require any oxygen to maintain saturation 10/14/2021 The patient was seen and examined in medical floor and in the Covid room She has been feeling much better Still has minimal tightness in the chest She has been saturating on room air Review of Systems Review of Systems: All systems reviewed and are unremarkable except as noted below Respiratory: Minimal or no shortness of breath at rest Physical Exam Physical Exam: Lying in bed comfortably Constitutional: well developed, well nourished, + ill appearing and + obese Eyes: PERRL, conjunctivae normal, anicteric sclerae ENMT: external ear and nose normal, oropharynx normal Neck: trachea midline, no thyromegaly Respiratory: + respiratory distress (Minimal distress) and + cough Auscultation: + diminished lung sounds and + crackles (Normal crackles at the bases) Cardiovascular: Rate/Rhythm: regular rate and regular rhythm; not tachycardic Heart Sounds: normal S1 and normal S2; no abnormal opening sounds Extremities: no edema Gastrointestinal (Abdomen): Inspection/Auscultation: normal bowel sounds; abdomen not distended Percussion/Palpation: abdomen soft; abdomen nontender Musculoskeletal: No acute arthritis in any joint Neurologic: Alert, awake and oriented x3. No focal sensory and motor deficit appreciated Lymphatic: no cervical or axillary lymphadenopathy Results & Data Results & Data ([facility]) Vital Signs (Past 12 Hours) Vital Signs Temp Pulse Resp BP Pulse Ox 10/14/21 15:30 36.6 C 92 H 16 145/82 H 93 10/14/21 08:27 36.7 C 76 16 168/89 H 93 Medications Administered Current Inpatient Medications Acetaminophen (Acetaminophen 325 Mg Tab) 650 mg PO Q4H PRN PRN Reason: pain/fever Stop: 11/11/21 04:31 Albuterol (Albuterol Hfa 8 Gm Inhaler) 2 puffs INH DAILY PRN PRN Reason: Shortness Of Breath Or Wheezin Stop: 11/11/21 04:31 Amlodipine Besylate (Amlodipine Besylate 5 Mg Tab) 5 mg PO PM [facility] Stop: 11/11/21 20:59 Last Admin: 10/13/21 21:21 Dose: 5 mg Documented by: Aspirin (Aspirin 81 Mg Ectab) 81 mg PO MoWeFr@0900 [facility] Stop: 11/13/21 08:59 Last Admin: 10/14/21 09:00 Dose: 81 mg Documented by: Benzonatate (Benzonatate 100 Mg Capsule) 100 mg PO TID [facility] Stop: 11/11/21 08:59 Last Admin: 10/14/21 13:00 Dose: 100 mg Documented by: Diclofenac Sodium (Diclofenac Sod 1% Gel 100 Gm Tube) 4 gm EXT DAILY PRN PRN Reason: Pain Stop: 11/11/21 04:31 Enoxaparin Sodium (Enoxaparin Inj 40 Mg/0.4 Ml Syr) 40 mg SQ Q12H [facility] Stop: 11/11/21 08:59 Last Admin: 10/14/21 09:01 Dose: 40 mg Documented by: Fluticasone Furoate (Fluticasone Furoate 100mcg 14 Puffs/Inhaler) 1 puffs INH DAILY [facility] Stop: 11/11/21 08:59 Last Admin: 10/14/21 09:01 Dose: 1 puffs Documented by: Guaifenesin/Codeine Phosphate (Guaifenesin/Codeine 100mg/10mg 5ml Udc) 5 ml PO Q6H PRN PRN Reason: Cough Stop: 11/11/21 04:31 Hydralazine HCl (Hydralazine Hcl 25 Mg Tab) 25 mg PO BID [facility] Stop: 11/11/21 08:59 Last Admin: 10/14/21 09:01 Dose: 25 mg Documented by: Dexamethasone 6 mg/ Syringe 1.5 mls @ 1 mls/min IV DAILY [facility] Stop: 10/22/21 08:59 Last Admin: 10/14/21 09:01 Dose: 1 mls/min Documented by: Ceftriaxone Sodium 2,000 mg/ (Dextrose) 70 mls @ 100 mls/hr IV Q24H [facility]; Protocol Stop: 10/22/21 21:59 Last Infusion: 10/13/21 22:07 Dose: Infused Documented by: Levothyroxine Sodium (Levothyroxine Sodium 50 Mcg Tablet) 50 mcg PO DAILYBB [facility] Stop: 11/11/21 06:29 Last Admin: 10/14/21 06:10 Dose: 50 mcg Documented by: Metoprolol Succinate (Metoprolol Succ 50mg Ext Rel Tab) 50 mg PO [facility] Stop: 11/11/21 20:59 Last Admin: 10/13/21 21:22 Dose: 50 mg Documented by: Multivitamins (Multivitamin Tab) 1 tab PO QAM [facility] Stop: 11/11/21 08:59 Last Admin: 10/14/21 09:02 Dose: 1 tab Documented by: Multivitamins/Minerals (Calcium 600mg + Vit D 400 Iu Tab) 1 tab PO [facility] Stop: 11/11/21 20:59 Last Admin: 10/13/21 21:20 Dose: 1 tab Documented by: Multivitamins/Minerals (Cerovite Adv Formula Tab) 1 tab PO DAILY [facility] Stop: 11/11/21 08:59 Last Admin: 10/14/21 09:02 Dose: 1 tab Documented by: Nitroglycerin (Nitroglycerin Sl 0.4 Mg/Tab Tab) 0.4 mg SL UD PRN PRN Reason: Chest Pain Stop: 11/11/21 04:31 Pantoprazole Sodium (Pantoprazole 40 Mg Tab) 40 mg PO QAM [facility] Stop: 11/11/21 08:59 Last Admin: 10/14/21 09:02 Dose: 40 mg Documented by: Simvastatin (Simvastatin 20 Mg Tab) 20 mg PO [facility] Stop: 11/11/21 20:59 Last Admin: 10/13/21 21:21 Dose: 20 mg Documented by: Valsartan (Valsartan 80 Mg Tab) 320 mg PO DAILY [facility] Stop: 11/11/21 08:59 Last Admin: 10/14/21 09:02 Dose: 320 mg Documented by: Vitamin D (Cholecalciferol 1,000 Units 25 Mcg Tab) 1,000 units PO HS [facility] Stop: 11/11/21 20:59 Last Admin: 10/13/21 21:20 Dose: 1,000 units Documented by:
[2021-10-14] MEDS: METOPROLOL SUCC 50MG EXT REL TAB PO SCH (21:28)
[2021-10-14] MEDS: SIMVASTATIN 20 MG TAB PO SCH (21:28)
[2021-10-14] MEDS: amLODIPine BESYLATE 5 MG TAB PO SCH (21:29)
[2021-10-14] MEDS: CALCIUM 600MG + VIT D 400 IU TAB PO SCH (21:29)
[2021-10-14] MEDS: cefTRIAXone SODIUM 2,000 MG in DEXTROSE 5% 50 ML IV SCH (21:29)
[2021-10-14] MEDS: CHOLECALCIFEROL 1,000 UNITS 25 MCG TAB PO SCH (21:29)
[2021-10-15] MEDS: LEVOTHYROXINE SODIUM 50 MCG TABLET PO SCH (05:47)
[2021-10-15 07:35] LABS: Basophils # (auto) 0.02 K/uL (0-0.2); Basophils % (auto) 0.3 %; Eosinophils # (auto) 0.02 K/uL (0-0.5); Eosinophils % (auto) 0.3 %; Hematocrit (blood only) 38.6 % (37-47); Hemoglobin 13.2 g/dL (12.0-16.0); Immature Granulocytes % (auto) 3.1 %; Lymphocytes # (auto) 1.03 K/uL (1.2-3.4); Mean Corpuscular Hemoglobin 30.1 pg (25-34); Mean Corpuscular Hgb Conc 34.2 g/dL (32-36); Mean Corpuscular Volume 88.1 fL (80-100); Mean Platelet Volume 8.8 fL (7.4-10.4); Monocytes # (auto) 0.83 K/uL (0.11-0.59); Monocytes % (auto) 12.9 %; Neutrophils # (auto) 4.34 K/uL (1.4-6.5); Neutrophils % (auto) 67.4 %; Platelet Count 341 K/uL (130-400); RDW Coefficient of Variation 12.9 % (11.5-14.5); RDW Standard Deviation 41.5 fL (36.4-46.3); Red Blood Count 4.38 M/uL (4.2-5.4); White Blood Count 6.44 K/uL (4.8-10.8)
[2021-10-15 08:01] LABS: BUN Creatinine Ratio 17.3 (10-20); Calcium 8.8 mg/dl (8.5-10.1); Creatinine Clr Calc Pharmacy 57.2 ml/min; Est GFR (African American) 66.7 ml/min; Est GFR (Non-African American) 57.5 ml/min; Potassium 3.4 mmol/L (3.5-5.1)
[2021-10-15 08:07] LABS: Phosphorus 3.2 mg/dl (2.5-4.9)
[2021-10-15] MEDS: ENOXAPARIN INJ 40 MG/0.4 ML SYR SQ SCH (08:33)
[2021-10-15] MEDS: dexAMETHasone 6 MG in SYRINGE 0 ML IV SCH (08:33)
[2021-10-15] MEDS: MULTIVITAMIN TAB PO SCH (08:35)
[2021-10-15] MEDS: VALSARTAN 80 MG TAB PO SCH (08:35)
[2021-10-15] MEDS: FLUTICASONE FUROATE 100MCG 14 PUFFS/INHALER INH SCH (08:35)
[2021-10-15] MEDS: hydrALAZINE HCL 25 MG TAB PO SCH (08:35)
[2021-10-15] MEDS: CEROVITE ADV FORMULA TAB PO SCH (08:35)
[2021-10-15] MEDS: PANTOprazole 40 MG TAB PO SCH (08:35)
[2021-10-15] MEDS: BENZONATATE 100 MG CAPSULE PO SCH ×2 (08:49→13:42)
[2021-10-15] MEDS ORDERED: POTASSIUM CHLORIDE CRTAB 20 MEQ TABCR PO STA (10:08)
[2021-10-15] MEDS ORDERED: cephALEXin 500 MG CAP PO SCH (21:00)
== END 2021-10-15 18:06 | disposition home or self-care (01) ==
LOC: ED 21:47 → EDINP 10-12 01:45 → SUATTDRO 10-12 01:45 → INTOOBSV 10-12 01:45 → 3E 10-12 04:34